=== PATIENT | male | born 1970 | race Two or more races ===

== ENCOUNTER 2020-05-11 09:52 | Outpatient (REF) | payer MEDICAID, SELFPAY ==
[2020-05-11 10:58] LABS: Estimated Average Glucose 157 mg/dL; Hemoglobin A1c % 7.1 %
[2020-05-11 11:12] LABS: Alanine Aminotransferase 22 U/L (0-40); Albumin Level 4.2 g/dL (3.5-5.0); Alkaline Phosphatase 59 U/L (39-117); Anion Gap 11 (12-20); Aspartate Amino Transferase 15 U/L (5-37); Bilirubin Total 0.6 mg/dL (0.0-1.0); Blood Urea Nitrogen 22 mg/dL (9-16); Calcium 9.4 mg/dL (8.4-10.2); Carbon Dioxide 31 mmol/L (22-29); Chloride 104 mmol/L (96-108); Estimated Glomerular Filt Rate > 60; Glucose Random 172 mg/dL (60-115); Sodium 142 mmol/L (135-145); Total Protein 7.1 g/dL (6.5-8.0)
== END 2020-05-11 09:53 | disposition home or self-care (01) ==
LOC: HO.LAB 09:52
PROVIDERS: PCP Internal Medicine; Visit Provider Internal Medicine
DX: E11.9 Type 2 diabetes mellitus without complications (principal); E78.2 Mixed hyperlipidemia; M25.512 Pain in left shoulder
CPT/HCPCS: 80053; 83036

== ENCOUNTER → 2020-06-15 10:46 | Outpatient (BNVA) | payer MEDICAID, SELFPAY | PROVIDERS: PCP Internal Medicine; Referring Provider Internal Medicine; Visit Provider Student in an Organized Health Care Education/Training Program | DX: M25.512 Pain in left shoulder (principal) | CPT/HCPCS: 20610; 99211 ==

== ENCOUNTER 2020-08-29 10:23 | Outpatient (REF) | payer MEDICAID, SELFPAY ==
[2020-08-29 12:06] LABS: MANUAL DIFF FLAG NO
[2020-08-29 12:11] LABS: Basophils Percent Auto 0.2 % (0-2); Eosinophils Absolute Auto 0.1 X10*3/uL (0.0-0.4); Eosinophils Percent Auto 1.4 % (0-4); Hematocrit 36.8 % (42-52); Hemoglobin 12.8 g/dl (14.0-18.0); Imm Gran Abs Auto 0.01 X10*3/uL (0.00-0.03); Imm Gran Pct Auto 0.2 % (0.0-0.4); Lymphocytes Absolute Auto 1.6 X10*3/uL (1.2-4.9); Lymphocytes Percent Auto 27.2 % (20-40); Mean Corpuscular HGB Conc 34.8 g/dl (31.0-36.0); Mean Corpuscular Hemoglobin 30.4 pg (27.0-33.0); Mean Corpuscular Volume 87.4 fL (80-98); Mean Platelet Volume 10.2 fL (9.4-12.4); Monocytes Absolute Auto 0.4 X10*3/uL (0.1-1.2); Monocytes Percent Auto 6.1 % (2-11); Neutrophils Absolute Auto 3.7 X10*3/uL (2.0-8.3); Neutrophils Percent Auto 64.9 % (45-73); Platelet Count 205 X10*3/uL (160-400); Red Blood Count 4.21 X10*6/uL (4.60-5.80); Red Cell Distribution Width 12.5 % (11.0-16.0); White Blood Count 5.7 X10*3/uL (4.8-10.8)
[2020-08-29 12:40] LABS: Estimated Average Glucose 189 mg/dL; Hemoglobin A1c % 8.2 %
[2020-08-29 12:46] LABS: Alanine Aminotransferase 20 U/L (0-40); Albumin Level 4.3 g/dL (3.5-5.0); Alkaline Phosphatase 66 U/L (39-117); Anion Gap 14 (12-20); Aspartate Amino Transferase 17 U/L (5-37); Bilirubin Total 0.6 mg/dL (0.0-1.0); Blood Urea Nitrogen 17 mg/dL (9-16); Calcium 9.3 mg/dL (8.4-10.2); Carbon Dioxide 27 mmol/L (22-29); Chloride 102 mmol/L (96-108); Cholesterol 108 mg/dL; Estimated Glomerular Filt Rate > 60; Glucose Random 217 mg/dL (60-115); HDL Cholesterol 42 mg/dL; LDL Cholesterol Calculated 57 mg/dl; Sodium 139 mmol/L (135-145); Total Protein 7.1 g/dL (6.5-8.0); Triglycerides 48 mg/dL
[2020-08-29 12:56] LABS: Creatinine Urine 175.74 mg/dL; Microalbum/Creatinine Ratio Ur 3.9 ug/mg cr
== END 2020-08-29 10:24 | disposition home or self-care (01) ==
LOC: HO.LAB 10:23
PROVIDERS: PCP Internal Medicine; Visit Provider Internal Medicine
DX: Z00.00 Encounter for general adult medical examination without abnormal findings (principal); E11.9 Type 2 diabetes mellitus without complications; E78.2 Mixed hyperlipidemia
CPT/HCPCS: 36415; 80053; 80061; 82043; 83036; 85025

== ENCOUNTER 2020-10-12 14:35 | Outpatient (REF) | payer MEDICAID, SELFPAY ==
[2020-10-12 14:57] LABS: COVID-19 Test Negative (Negative); IDNOW Serial# 55D5AD1C
== END 2020-10-12 14:36 | disposition home or self-care (01) ==
LOC: HO.LAB 14:35
PROVIDERS: Visit Provider Internal Medicine
DX: Z20.822 Contact with and (suspected) exposure to COVID-19 (principal)
CPT/HCPCS: 36415; 87635; C9803

== ENCOUNTER 2021-01-09 09:39 | Outpatient (REF) | payer MEDICAID, SELFPAY ==
[2021-01-09 11:03] LABS: Alanine Aminotransferase 23 U/L (0-40); Albumin Level 4.1 g/dL (3.5-5.0); Alkaline Phosphatase 57 U/L (39-117); Anion Gap 11 (12-20); Aspartate Amino Transferase 18 U/L (5-37); Bilirubin Total 0.6 mg/dL (0.0-1.0); Blood Urea Nitrogen 18 mg/dL (9-16); Calcium 9.6 mg/dL (8.4-10.2); Carbon Dioxide 29 mmol/L (22-29); Chloride 104 mmol/L (96-108); Estimated Glomerular Filt Rate > 60; Glucose Random 181 mg/dL (60-115); Sodium 140 mmol/L (135-145); Total Protein 6.8 g/dL (6.5-8.0)
[2021-01-09 11:19] LABS: Estimated Average Glucose 223 mg/dL; Hemoglobin A1c % 9.4 %
== END 2021-01-09 09:40 | disposition home or self-care (01) ==
LOC: HO.LAB 09:39
PROVIDERS: PCP Internal Medicine; Visit Provider Internal Medicine
DX: E11.65 Type 2 diabetes mellitus with hyperglycemia (principal); E78.00 Pure hypercholesterolemia, unspecified; I10 Essential (primary) hypertension
CPT/HCPCS: 36415; 80053; 83036

== ENCOUNTER → 2021-02-06 15:20 | Outpatient (BNVA) | payer MEDICAID, SELFPAY | PROVIDERS: PCP Internal Medicine; Visit Provider Anesthesiology | DX: M46.1 Sacroiliitis, not elsewhere classified (principal); M54.5 Low back pain; M53.3 Sacrococcygeal disorders, not elsewhere classified | CPT/HCPCS: 99202 ==

== ENCOUNTER → 2021-03-06 09:03 | Outpatient (BNVA) | payer MEDICAID, SELFPAY | PROVIDERS: PCP Internal Medicine; Visit Provider Anesthesiology | DX: M54.5 Low back pain (principal); M46.1 Sacroiliitis, not elsewhere classified; M53.3 Sacrococcygeal disorders, not elsewhere classified | CPT/HCPCS: 99212 ==

== ENCOUNTER 2021-04-10 09:56 | Outpatient (REF) | payer MEDICAID, SELFPAY ==
[2021-04-10 10:50] LABS: Estimated Average Glucose 143 mg/dL; Hemoglobin A1c % 6.6 %
[2021-04-10 11:14] LABS: Alanine Aminotransferase 19 U/L (0-40); Albumin Level 4.3 g/dL (3.5-5.0); Alkaline Phosphatase 55 U/L (39-117); Anion Gap 10 (12-20); Aspartate Amino Transferase 18 U/L (5-37); Bilirubin Total 0.7 mg/dL (0.0-1.0); Blood Urea Nitrogen 21 mg/dL (9-16); Calcium 9.7 mg/dL (8.4-10.2); Carbon Dioxide 29 mmol/L (22-29); Chloride 103 mmol/L (96-108); Estimated Glomerular Filt Rate > 60; Glucose Random 114 mg/dL (60-115); Potassium 4.3 mmol/L (3.3-5.1); Sodium 138 mmol/L (135-145)
== END 2021-04-10 09:57 | disposition home or self-care (01) ==
LOC: HO.LAB 09:56
PROVIDERS: PCP Internal Medicine; Visit Provider Internal Medicine
DX: E11.65 Type 2 diabetes mellitus with hyperglycemia (principal); E78.00 Pure hypercholesterolemia, unspecified; I10 Essential (primary) hypertension; M54.16 Radiculopathy, lumbar region
CPT/HCPCS: 36415; 80053; 83036

== ENCOUNTER 2021-04-18 11:08 | Day surgery (SDC) | payer MEDICAID, SELFPAY ==
[2021-04-11 09:17] VITALS: BMI 30.5
--- NOTE | ~2021-04-18 | FL_ITS ---
EXAMINATION: XR FLUOROSCOPY WITH IMAGES CLINICAL INFORMATION: SI joint injection COMPARISON: None. TECHNIQUE: Fluoroscopy performed by Dr. Austen Weinberg. Fluoroscopy time: 0.1 minutes DAP: 1.8 mGycm2 Images: 1 FINDINGS: Images demonstrate needle placement and contrast injection over the right inferior sacroiliac joint. FL/FL guidance in OR IMPRESSION: Fluoroscopy guidance for pain management procedure.
[2021-04-18 11:33] VITALS: BP 123/72; PULSE 64; RESP 16; TEMP 36.7; O2SAT 97
[2021-04-18 11:50] LABS: Glucose, Whole Blood 90 mg/dL (60-115)
--- NOTE | 2021-04-18 12:06 | MHC.SHP ---
Pre-Procedural Eval Section A Date of Service: 04/18/21 Section B Chief Complaint: Sacroiliitis, Sacroiliac joint dysfunction right Details of Present Illness: as above Relevant Family History (Specify if Yes): No Relevant Social History: None Present Medications: see Short Stay Collaborative assessment Medical History: No relevant PMH History of Previous Operations: No relevant previous surgery Allergies: Allergies Allergy/AdvReac Type Severity Reaction Status Date / Time No Known Allergies Allergy Verified 04/18/21 11:32 Review of Systems Sugical H&P ROS: Negative: Constitution, Cardiovascular, Respiratory, Neurological, Psychiatric, Hem-Onc, Allergic/Immunologic, Gastrointestinal, Genitourinary, Musculoskeletal, Integumentary, Endocrine and Eyes/Ears/Nose/Throat Exam Surgical H&P Exam: Normal: HEENT, Normal: Heart, Normal: Lungs, Normal: Extremities, Normal: Abdomen, Normal: Skin and Normal: Neurological Plan Diagnosis/Plan: Unchanged I have reviewed the history and physical and performed a pertinent physical examination on my patient. No changes have occurred unless specified.
--- NOTE | 2021-04-18 12:10 | W.PM.OPN ---
Operative Note Operative Note Date of Service: 04/18/21 Narrative: The patient came to theOR to have a diagnostic right SI joint injection. After obtaining informed consent the patient was brought to the OR where he was positioned prone on the operating table. ASA m-rs were applied and the patient was minimally sedated. Time out was performed delineating correct site and side of the procedure. the lower back of the patient was prepped and draped with duraprep. C-arm was brought over the operating field and square picture of the pelvis was demonstrated on the screen . tilting machine contralateral to the left the anterior and posterior portion of the joint were superimposed. Slightly medial to the silhouette of the joint the local anesthetic lidocain 2% was injected to the skin. 22G 3.5 inch needle was inserted through the skin wheal and advanced toward the SI joint on AP view. When penetration of the joint capsule felt, the contrast was injected into the joint demonstrating intra-articular spread of the contrast. the injection of the marcain 0.5% 4 mls was performed into the the needle. Upon completion of the injection the needle was removed and sterile dressing was applied. The patient tolerated the procedure well he was taken outside of the operating room to the recovery room. No immediate complications were observed.
--- NOTE | 2021-04-18 12:41 | HO.ANESPROP2 ---
HPI - Anesthesia Eval Consult details Narrative: 50 yo male patient for diagnostic Right sacroiliac joint steroid injection PMFSH Active Problems Active Problems: All Active Problems (Updated 04/11/21 @ 09:08 by Karena Lomas RN) Left shoulder pain (Acute) Sacroiliac joint dysfunction of right side (Acute) Sacroiliitis (Acute) Low back pain (Acute) Past Medical History Medical History Arthritis COVID-19 vaccine series completed Depression Diabetes mellitus Elevated cholesterol HTN (hypertension) Hx of steroid therapy Low back pain Sacroiliac joint dysfunction of right side Sacroiliitis Family History Family history of problems with anesthesia: No Surgical History Surgical History Surgical history unknown History of Problems with Anesthesia: No Social History Social History (Updated 06/15/20 @ 11:00 by Richard Abdi LPN) Alcohol intake: current Alcohol intake frequency: a few times a month Alcohol type: beer Patient Tobacco Use Status: Never used Tobacco Use of substances other than those prescribed or required for medical reasons: No Advance Directives: No Advance Directives Information Provided: Yes (informational brochure mailed) Advance Directives on File: No Meds Allergies Allergy/AdvReac Type Severity Reaction Status Date / Time No Known Allergies Allergy Verified 04/18/21 11:32 Active Medications: Current Medications Lactated Ringer's (Lr) 1,000 mls @ 100 mls/hr IVCONT .Q10H JOSEFINA Home Medications Medication Instructions Recorded Confirmed Last Taken Type duloxetine 30 mg capsule,delayed 30 mg PO DAILY 06/15/20 04/11/21 Unknown History release (Cymbalta) metformin 1,000 mg tablet 1,000 mg PO BID 06/15/20 04/11/21 Unknown History blood sugar diagnostic (FreeStyle #10 ea 02/06/21 Unknown History Test) diclofenac sodium 75 mg 75 mg PO BID 02/06/21 04/11/21 Unknown History tablet,delayed release empagliflozin 25 mg tablet 25 mg PO QAM 02/06/21 04/11/21 Unknown History (Jardiance) lancets 28 gauge (FreeStyle #100 ea 02/06/21 Unknown History Lancets) zolpidem 10 mg tablet 10 mg PO BEDTIME PRN 02/06/21 04/11/21 Unknown History duloxetine 60 mg capsule,delayed 60 mg PO DAILY 04/11/21 04/11/21 Unknown History release ezetimibe 10 mg tablet 10 mg PO DAILY 04/11/21 04/11/21 Unknown History glimepiride 2 mg tablet 2 mg PO DAILY 04/11/21 04/11/21 Unknown History losartan 50 mg tablet 50 mg PO DAILY 04/11/21 04/11/21 Unknown History rosuvastatin 40 mg tablet 40 mg PO BEDTIME 04/11/21 04/11/21 Unknown History Exam Exam Date and Time: April 18, 2021 1241 Height,Weight and Vital Signs: Height 5 ft 9 in Weight 93.894 kg Last Vital Signs Temp 98.0 F 04/18/21 11:33 Pulse 64 04/18/21 11:33 Resp 16 04/18/21 11:33 BP 123/72 04/18/21 11:33 Pulse Ox 97 04/18/21 11:33 Pertinent Lab Results Pertinent Lab Results: Laboratory Tests 04/18/21 11:40 POC Glucose 90 Airway Mallampati Class: II TM Dist: >3cm Neck ROM: Full Loose/Missing/Broken Teeth: Yes (Broken top front left) Heart: RRR Lungs: CTAB Assessment and Plan Assessment Anesthesia Assessment: Anesthesia Plan Discussed and Chart Reviewed Final Anesthetic Review Family History of Problems with Anesthesia: No History of Problems with Anesthesia: No NPO: Yes ASA Class: II Final Preanesthetic Review: No Changes in Pt Med Stat, Meds/Allgs Chart Reviewed, Consent Obtained/Reviewed and Anes Risks/Benef Reviewed Patient Risk: Low Procedure Risk: Low Assessment/Block/Sedation in SS: Assess/Block/Sedation-SS Anesthetic Plan Anesthetic Plan: MAC: Disposition: Standard PACU
[2021-04-18] MEDS: Lactated Ringers 1,000 ML 100 ML IVCONT (12:48)
--- NOTE | 2021-04-18 13:12 | PM.OP ---
Brief Operative Note Date of Service: 04/18/21 Pre-op diagnosis: sacroiliitis Post-op diagnosis: same Procedure: diagnostic left SI joint injection. Implants: none Surgeon: Austen Weinberg MD Anesthesia: MAC Was an Software Qa System Specialist used for this Procedure?: No Estimated blood loss (mL): 0 Pathology: none sent Condition: stable Disposition: PACU
[2021-04-18 13:16] VITALS: BP 115/65; PULSE 60; RESP 16; TEMP 36.7; O2SAT 96
[2021-04-18 13:31] VITALS: BP 105/66; PULSE 59; RESP 16; TEMP 36.7; O2SAT 98
[2021-04-18 13:46] VITALS: BP 116/71; PULSE 57; RESP 17; TEMP 36.7; O2SAT 99
== END 2021-04-18 14:21 | disposition home or self-care (01) ==
PROVIDERS: PCP Internal Medicine; Visit Provider Anesthesiology
PROC: 3E0U33Z Introduction of Anti-inflammatory into Joints, Percutaneous Approach (ICD-10-PCS; CPT 27096; principal; 2021-04-18 12:50)
DX: M54.50 Low back pain, unspecified (principal); M46.1 Sacroiliitis, not elsewhere classified; M53.3 Sacrococcygeal disorders, not elsewhere classified; M79.661 Pain in right lower leg; E11.9 Type 2 diabetes mellitus without complications
CPT/HCPCS: 27096; 82947; J2250; Q9967

== ENCOUNTER → 2021-04-24 15:27 | Outpatient (BNVA) | payer MEDICAID, SELFPAY | PROVIDERS: PCP Internal Medicine; Visit Provider Anesthesiology ==

== ENCOUNTER 2021-07-08 09:43 | Outpatient (REF) | payer MEDICAID, SELFPAY ==
[2021-07-08 10:50] LABS: Alanine Aminotransferase 17 U/L (0-40); Albumin Level 4.2 g/dL (3.5-5.0); Alkaline Phosphatase 51 U/L (39-117); Anion Gap 10 (12-20); Aspartate Amino Transferase 20 U/L (5-37); Bilirubin Total 0.6 mg/dL (0.0-1.0); Blood Urea Nitrogen 16 mg/dL (9-16); Calcium 9.8 mg/dL (8.4-10.2); Carbon Dioxide 29 mmol/L (22-29); Chloride 106 mmol/L (96-108); Estimated Glomerular Filt Rate > 60; Glucose Random 114 mg/dL (60-115); Potassium 3.9 mmol/L (3.3-5.1); Sodium 141 mmol/L (135-145)
[2021-07-08 11:38] LABS: Estimated Average Glucose 137 mg/dL; Hemoglobin A1c % 6.4 %
== END 2021-07-08 09:44 | disposition home or self-care (01) ==
LOC: HO.LAB 09:43
PROVIDERS: PCP Internal Medicine; Visit Provider Internal Medicine
DX: E11.9 Type 2 diabetes mellitus without complications (principal); I10 Essential (primary) hypertension; L30.0 Nummular dermatitis; M46.1 Sacroiliitis, not elsewhere classified
CPT/HCPCS: 36415; 80053; 83036

== ENCOUNTER 2021-07-12 11:05 | Day surgery (SDC) | payer MEDICAID, SELFPAY ==
[2021-07-08 11:12] VITALS: BMI 30.5
--- NOTE | 2021-07-11 10:52 | P.CONAN_ITS ---
Documented by User: Divya Santos NP 07/11/21 10:54 HPI - Anesthesia Eval Consult details Narrative: 51yo M for Right Sacroiliac Joint Steroid Injection s/p same 04/2021 with MAC [facility] Active Problems Active Problems: All Active Problems (Updated 07/08/21 @ 11:12 by Karena Lomas RN) Left shoulder pain (Acute) Sacroiliac joint dysfunction of right side (Acute) Sacroiliitis (Acute) Low back pain (Acute) Past Medical History Medical History Arthritis COVID-19 vaccine series completed Depression Diabetes mellitus Elevated cholesterol History of steroid therapy HTN (hypertension) Low back pain Sacroiliac joint dysfunction of right side Sacroiliitis Family History Family history of problems with anesthesia: No Surgical History Surgical History Surgical history unknown History of Problems with Anesthesia: No Social History Social History Alcohol intake: current Alcohol intake frequency: does not drink Alcohol type: beer Patient Tobacco Use Status: Never used Tobacco Use of substances other than those prescribed or required for medical reasons: No Are you DNR?: No Advance Directives: No Advance Directives Information Provided: Yes Advance Directives on File: No Meds Allergies Allergy/AdvReac Type Severity Reaction Status Date / Time No Known Allergies Allergy Verified 04/24/21 15:28 Home Medications Medication Instructions Recorded Confirmed Last Taken Type duloxetine 30 mg 30 mg PO DAILY 06/15/20 07/08/21 Unknown History capsule,delayed release (Cymbalta) metformin 1,000 1,000 mg PO BID 06/15/20 07/08/21 Unknown History mg tablet blood sugar #10 ea 02/06/21 07/08/21 Unknown History diagnostic (FreeStyle Test) diclofenac sodium 75 mg PO BID 02/06/21 07/08/21 Unknown History 75 mg tablet,delayed release empagliflozin 25 25 mg PO QAM 02/06/21 07/08/21 Unknown History mg tablet (Jardiance) lancets 28 gauge #100 ea 02/06/21 07/08/21 Unknown History (FreeStyle Lancets) zolpidem 10 mg 10 mg PO BEDTIME 02/06/21 07/08/21 Unknown History tablet PRN duloxetine 60 mg 60 mg PO DAILY 04/11/21 07/08/21 Unknown History capsule,delayed release ezetimibe 10 mg 10 mg PO DAILY 04/11/21 07/08/21 Unknown History tablet glimepiride 2 mg 2 mg PO DAILY 04/11/21 07/08/21 Unknown History tablet losartan 50 mg 50 mg PO DAILY 04/11/21 07/08/21 Unknown History tablet rosuvastatin 40 40 mg PO BEDTIME 04/11/21 07/08/21 Unknown History mg tablet Exam Exam Date and Time: July 11, 2021 1052 Height,Weight and Vital Signs: Height 5 ft 9 in Weight 93.894 kg Pertinent Lab Results Pertinent Lab Results: Laboratory Tests 08/29/20 07/08/21 10:35 10:02 WBC 5.7 Hgb 12.8 L Hct 36.8 L Plt Count 205 Sodium 141 Potassium 3.9 Chloride 106 Carbon Dioxide 29 BUN 16 Creatinine 1.03 Assessment and Plan Assessment Anesthesia Assessment: Chart Reviewed Final Anesthetic Review Family History of Problems with Anesthesia: No History of Problems with Anesthesia: No Documented by User: Lisa Childress MD 07/12/21 12:58 PMFSH Past Medical History Medical History Arthritis COVID-19 vaccine series completed Depression Diabetes mellitus Elevated cholesterol History of steroid therapy HTN (hypertension) Low back pain Sacroiliac joint dysfunction of right side Sacroiliitis Surgical History Surgical History Surgical history unknown Social History Social History Alcohol intake: current Alcohol intake frequency: does not drink Alcohol type: beer Patient Tobacco Use Status: Never used Tobacco Use of substances other than those prescribed or required for medical reasons: No Are you DNR?: No Advance Directives: No Advance Directives Information Provided: Yes Advance Directives on File: No Meds Allergies Allergy/AdvReac Type Severity Reaction Status Date / Time No Known Allergies Allergy Verified 04/24/21 15:28 Home Medications Medication Instructions Recorded Confirmed Last Taken Type duloxetine 30 mg 30 mg PO DAILY 06/15/20 07/08/21 Unknown History capsule,delayed release (Cymbalta) metformin 1,000 1,000 mg PO BID 06/15/20 07/08/21 Unknown History mg tablet blood sugar #10 ea 02/06/21 07/08/21 Unknown History diagnostic (FreeStyle Test) diclofenac sodium 75 mg PO BID 02/06/21 07/08/21 Unknown History 75 mg tablet,delayed release empagliflozin 25 25 mg PO QAM 02/06/21 07/08/21 Unknown History mg tablet (Jardiance) lancets 28 gauge #100 ea 02/06/21 07/08/21 Unknown History (FreeStyle Lancets) zolpidem 10 mg 10 mg PO BEDTIME 02/06/21 07/08/21 Unknown History tablet PRN duloxetine 60 mg 60 mg PO DAILY 04/11/21 07/08/21 Unknown History capsule,delayed release ezetimibe 10 mg 10 mg PO DAILY 04/11/21 07/08/21 Unknown History tablet glimepiride 2 mg 2 mg PO DAILY 04/11/21 07/08/21 Unknown History tablet losartan 50 mg 50 mg PO DAILY 04/11/21 07/08/21 Unknown History tablet rosuvastatin 40 40 mg PO BEDTIME 04/11/21 07/08/21 Unknown History mg tablet Exam Airway Mallampati Class: II TM Dist: >3cm Neck ROM: Full Loose/Missing/Broken Teeth: No Heart: RRR Lungs: CTA Assessment and Plan Final Anesthetic Review NPO: Yes ASA Class: II Final Preanesthetic Review: Meds/Allgs Chart Reviewed, Consent Obtained/Reviewed and Anes Risks/Benef Reviewed Patient Risk: Low Procedure Risk: Low Anesthetic Plan Anesthetic Plan: MAC: Disposition: Standard PACU
--- NOTE | 2021-07-11 10:52 | HO.ANESPROP2 ---
Documented by User: Divya Santos NP 07/11/21 10:54 HPI - Anesthesia Eval Consult details Narrative: 51yo M for Right Sacroiliac Joint Steroid Injection s/p same 04/2021 with MAC [facility] Active Problems Active Problems: All Active Problems (Updated 07/08/21 @ 11:12 by Karena Lomas RN) Left shoulder pain (Acute) Sacroiliac joint dysfunction of right side (Acute) Sacroiliitis (Acute) Low back pain (Acute) Past Medical History Medical History Arthritis COVID-19 vaccine series completed Depression Diabetes mellitus Elevated cholesterol History of steroid therapy HTN (hypertension) Low back pain Sacroiliac joint dysfunction of right side Sacroiliitis Family History Family history of problems with anesthesia: No Surgical History Surgical History Surgical history unknown History of Problems with Anesthesia: No Social History Social History Alcohol intake: current Alcohol intake frequency: does not drink Alcohol type: beer Patient Tobacco Use Status: Never used Tobacco Use of substances other than those prescribed or required for medical reasons: No Are you DNR?: No Advance Directives: No Advance Directives Information Provided: Yes Advance Directives on File: No Meds Allergies Allergy/AdvReac Type Severity Reaction Status Date / Time No Known Allergies Allergy Verified 04/24/21 15:28 Home Medications Medication Instructions Recorded Confirmed Last Taken Type duloxetine 30 mg capsule,delayed 30 mg PO DAILY 06/15/20 07/08/21 Unknown History release (Cymbalta) metformin 1,000 mg tablet 1,000 mg PO BID 06/15/20 07/08/21 Unknown History blood sugar diagnostic (FreeStyle #10 ea 02/06/21 07/08/21 Unknown History Test) diclofenac sodium 75 mg 75 mg PO BID 02/06/21 07/08/21 Unknown History tablet,delayed release empagliflozin 25 mg tablet 25 mg PO QAM 02/06/21 07/08/21 Unknown History (Jardiance) lancets 28 gauge (FreeStyle #100 ea 02/06/21 07/08/21 Unknown History Lancets) zolpidem 10 mg tablet 10 mg PO BEDTIME PRN 02/06/21 07/08/21 Unknown History duloxetine 60 mg capsule,delayed 60 mg PO DAILY 04/11/21 07/08/21 Unknown History release ezetimibe 10 mg tablet 10 mg PO DAILY 04/11/21 07/08/21 Unknown History glimepiride 2 mg tablet 2 mg PO DAILY 04/11/21 07/08/21 Unknown History losartan 50 mg tablet 50 mg PO DAILY 04/11/21 07/08/21 Unknown History rosuvastatin 40 mg tablet 40 mg PO BEDTIME 04/11/21 07/08/21 Unknown History Exam Exam Date and Time: July 11, 2021 1052 Height,Weight and Vital Signs: Height 5 ft 9 in Weight 93.894 kg Pertinent Lab Results Pertinent Lab Results: Laboratory Tests 08/29/20 07/08/21 10:35 10:02 WBC 5.7 Hgb 12.8 L Hct 36.8 L Plt Count 205 Sodium 141 Potassium 3.9 Chloride 106 Carbon Dioxide 29 BUN 16 Creatinine 1.03 Assessment and Plan Assessment Anesthesia Assessment: Chart Reviewed Final Anesthetic Review Family History of Problems with Anesthesia: No History of Problems with Anesthesia: No Documented by User: Lisa Childress MD 07/12/21 12:58 [facility] Past Medical History Medical History Arthritis COVID-19 vaccine series completed Depression Diabetes mellitus Elevated cholesterol History of steroid therapy HTN (hypertension) Low back pain Sacroiliac joint dysfunction of right side Sacroiliitis Surgical History Surgical History Surgical history unknown Social History Social History Alcohol intake: current Alcohol intake frequency: does not drink Alcohol type: beer Patient Tobacco Use Status: Never used Tobacco Use of substances other than those prescribed or required for medical reasons: No Are you DNR?: No Advance Directives: No Advance Directives Information Provided: Yes Advance Directives on File: No Meds Allergies Allergy/AdvReac Type Severity Reaction Status Date / Time No Known Allergies Allergy Verified 04/24/21 15:28 Home Medications Medication Instructions Recorded Confirmed Last Taken Type duloxetine 30 mg capsule,delayed 30 mg PO DAILY 06/15/20 07/08/21 Unknown History release (Cymbalta) metformin 1,000 mg tablet 1,000 mg PO BID 06/15/20 07/08/21 Unknown History blood sugar diagnostic (FreeStyle #10 ea 02/06/21 07/08/21 Unknown History Test) diclofenac sodium 75 mg 75 mg PO BID 02/06/21 07/08/21 Unknown History tablet,delayed release empagliflozin 25 mg tablet 25 mg PO QAM 02/06/21 07/08/21 Unknown History (Jardiance) lancets 28 gauge (FreeStyle #100 ea 02/06/21 07/08/21 Unknown History Lancets) zolpidem 10 mg tablet 10 mg PO BEDTIME PRN 02/06/21 07/08/21 Unknown History duloxetine 60 mg capsule,delayed 60 mg PO DAILY 04/11/21 07/08/21 Unknown History release ezetimibe 10 mg tablet 10 mg PO DAILY 04/11/21 07/08/21 Unknown History glimepiride 2 mg tablet 2 mg PO DAILY 04/11/21 07/08/21 Unknown History losartan 50 mg tablet 50 mg PO DAILY 04/11/21 07/08/21 Unknown History rosuvastatin 40 mg tablet 40 mg PO BEDTIME 04/11/21 07/08/21 Unknown History Exam Airway Mallampati Class: II TM Dist: >3cm Neck ROM: Full Loose/Missing/Broken Teeth: No Heart: RRR Lungs: CTA Assessment and Plan Final Anesthetic Review NPO: Yes ASA Class: II Final Preanesthetic Review: Meds/Allgs Chart Reviewed, Consent Obtained/Reviewed and Anes Risks/Benef Reviewed Patient Risk: Low Procedure Risk: Low Anesthetic Plan Anesthetic Plan: MAC: Disposition: Standard PACU
[2021-07-12] VITALS (7 sets, daily range): BP systolic 103–138; BP diastolic 59–77; PULSE 67–80; RESP 16–20; TEMP 36.1–37.2; O2SAT 96–100
--- NOTE | ~2021-07-12 | FL_ITS ---
EXAMINATION: XR FLUOROSCOPY WITH IMAGES CLINICAL INFORMATION: SI joint injection. COMPARISON: None. TECHNIQUE: Fluoroscopy performed by Dr. Vallecillo. Fluoroscopy time: 0.1 minutes DAP: 0.533 mGycm2 Images: 1 FINDINGS: There is a single image obtained of fluoroscopy with contrast opacifying the right SI joint. No gross bony abnormality seen. FL/FL guidance in OR IMPRESSION: Fluoroscopy provided to referring physician for right SI joint injection.
[2021-07-12 11:53] LABS: Glucose, Whole Blood 97 mg/dL (60-115)
[2021-07-12] MEDS: Lactated Ringers 1,000 ML 100 ML IVCONT (11:58)
--- NOTE | 2021-07-12 14:03 | MHC.SHP ---
Pre-Procedural Eval Section A Date of Service: 07/12/21 The patient is an INPATIENT: No Changes since office visit: Yes Patient answered all questions The History & Physical has been completed within 30 days and I have reviewed it.: No Section B Chief Complaint: sacroiliitis Details of Present Illness: As above Relevant Family History (Specify if Yes): No Relevant Social History: None Present Medications: see Short Stay Collaborative assessment Medical History: No relevant PMH History of Previous Operations: Relevant previous surgery/procedure and date(s) Allergies: Allergies Allergy/AdvReac Type Severity Reaction Status Date / Time No Known Allergies Allergy Verified 04/24/21 15:28 Review of Systems Sugical H&P ROS: Negative: Constitution, Cardiovascular, Respiratory, Neurological, Psychiatric, Hem-Onc, Allergic/Immunologic, Gastrointestinal, Genitourinary, Musculoskeletal, Integumentary, Endocrine and Eyes/Ears/Nose/Throat Exam Surgical H&P Exam: Normal: HEENT, Normal: Heart, Normal: Lungs, Normal: Extremities, Normal: Abdomen, Normal: Skin and Normal: Neurological Plan Diagnosis/Plan: Unchanged I have reviewed the history and physical and performed a pertinent physical examination on my patient. No changes have occurred unless specified.
--- NOTE | 2021-07-12 14:10 | W.PM.OPN ---
Operative Note Operative Note Date of Service: 07/12/21 Narrative: Informed consent was explained to the patient. All questions were explained and? answered.? The patient was taken inside the operating room where she was positioned prone on the operating table.? [employer] monitors were applied.? Patient was minimally sedated. ? Time-out was performed delineating correct site, side, the nature of the procedure, patient's allergy, preoperative antibiotic if needed.? All operating room staff was participating in OR time-out procedure. ? ? the lower back was prepped with DuraPrep and draped with sterile towels.? Sterilely draped C-arm was brought over the operating field and sq picture of patient's pelvis were delineated on the screen.? the point of interest was chosen as the lowest medial point of sacroiliac joint on the right. 22 gauge 3-1/2 inch needle was driven to the sacroiliac joint in tunnel vision fashion after skin wheal was raised to the skin to accommodate the needle advancement. When tip of the needle entered the capsule of the joint injection of the contrast performed demonstrating no intra vascular and no retro pelvic spread of the contrast. . intra-articular spread of the contrast was noted. After that injection of the bupivacaine 0.5% mixed with Kenalog 40 mg was injected into the needle. After that the needle was removed and sterile dressing was applied.? ? Upon completion of the injections? needle was? removed and sterile Band-Aids were applied.? The? patient was awaken and taken outside of the operating room to recovery room where he recovered uneventfully.? he went home without immediate complications.
--- NOTE | 2021-07-12 14:40 | PM.OP ---
Brief Operative Note Date of Service: 07/12/21 Pre-op diagnosis: sacroiliitis Post-op diagnosis: same Procedure: right sacroiliac joint injection Implants: none Surgeon: Austen Weinberg MD Anesthesia: MAC Was an Firmware Engineer used for this Procedure?: No Estimated blood loss (mL): 0 Pathology: none sent Condition: stable Disposition: PACU
== END 2021-07-12 16:53 | disposition home or self-care (01) ==
PROVIDERS: PCP Internal Medicine; Visit Provider Anesthesiology
PROC: 3E0U33Z Introduction of Anti-inflammatory into Joints, Percutaneous Approach (ICD-10-PCS; CPT 27096; principal; 2021-07-12 13:20)
DX: M46.1 Sacroiliitis, not elsewhere classified (principal); M54.50 Low back pain, unspecified; M53.3 Sacrococcygeal disorders, not elsewhere classified; E78.00 Pure hypercholesterolemia, unspecified; I10 Essential (primary) hypertension; E11.9 Type 2 diabetes mellitus without complications; Z79.84 Long term (current) use of oral hypoglycemic drugs; Z79.899 Other long term (current) drug therapy
CPT/HCPCS: 27096; 82947; J2250; J3010; J3300; Q9967

== ENCOUNTER 2021-07-22 07:55 | Outpatient (REF) | payer MEDICAID, SELFPAY ==
[2021-07-22 08:11] LABS: MANUAL DIFF FLAG NO
[2021-07-22 08:35] LABS: Basophils Percent Auto 0.3 % (0-2); Eosinophils Absolute Auto 0.1 X10*3/uL (0.0-0.4); Eosinophils Percent Auto 1.4 % (0-4); Hematocrit 39.8 % (42.0-52.0); Hemoglobin 13.5 g/dl (14.0-18.0); Imm Gran Abs Auto 0.02 X10*3/uL (0.00-0.03); Imm Gran Pct Auto 0.3 % (0.0-0.4); Lymphocytes Absolute Auto 2.5 X10*3/uL (1.2-4.9); Mean Corpuscular HGB Conc 33.9 g/dl (31.0-36.0); Mean Corpuscular Hemoglobin 29.6 pg (27.0-33.0); Mean Corpuscular Volume 87.3 fL (80.0-98.0); Mean Platelet Volume 9.3 fL (9.4-12.4); Monocytes Absolute Auto 0.7 X10*3/uL (0.1-1.2); Monocytes Percent Auto 8.5 % (2-11); Neutrophils Absolute Auto 4.4 x10*3/uL (2.0-8.3); Neutrophils Percent Auto 57.5 % (45-73); Platelet Count 239 X10*3/uL (160-400); Red Blood Count 4.56 X10*6/uL (4.60-5.80); Red Cell Distribution Width 12.7 % (11.0-16.0); White Blood Count 7.7 X10*3/uL (4.8-10.8)
[2021-07-22 08:53] LABS: Alanine Aminotransferase 34 U/L (0-40); Albumin Level 4.2 g/dL (3.5-5.0); Alkaline Phosphatase 55 U/L (39-117); Anion Gap 11 (12-20); Aspartate Amino Transferase 25 U/L (5-37); Bilirubin Total 0.5 mg/dL (0.0-1.0); Blood Urea Nitrogen 18 mg/dL (9-16); Carbon Dioxide 29 mmol/L (22-29); Chloride 104 mmol/L (96-108); Cholesterol 104 mg/dL; Estimated Glomerular Filt Rate > 60; Glucose Random 86 mg/dL (60-115); HDL Cholesterol 38 mg/dL; LDL Cholesterol Calculated 58 mg/dl; Potassium 4.2 mmol/L (3.3-5.1); Sodium 140 mmol/L (135-145); Total Protein 7.1 g/dL (6.5-8.0); Triglycerides 41 mg/dL
[2021-07-22 09:28] LABS: Estimated Average Glucose 134 mg/dL; Hemoglobin A1c % 6.3 %
[2021-07-22 09:55] LABS: Creatinine Urine 84.31 mg/dL; Microalbumin Urine < 5.0 mg/L
== END 2021-07-22 07:56 | disposition home or self-care (01) ==
LOC: HO.LAB 07:55
PROVIDERS: PCP Internal Medicine; Visit Provider Internal Medicine
DX: E11.9 Type 2 diabetes mellitus without complications (principal); E78.2 Mixed hyperlipidemia; I10 Essential (primary) hypertension; M75.52 Bursitis of left shoulder; M54.50 Low back pain, unspecified; M46.1 Sacroiliitis, not elsewhere classified; M53.3 Sacrococcygeal disorders, not elsewhere classified
CPT/HCPCS: 36415; 80053; 80061; 82043; 83036; 85025; 99212

== ENCOUNTER 2021-07-24 09:45 | Outpatient (REF) | payer MEDICAID, SELFPAY ==
--- NOTE | ~2021-07-24 | XR_ITS ---
EXAMINATION: XR ANKLE, RIGHT CLINICAL INFORMATION: Injury of right ankle COMPARISON: None TECHNIQUE: AP, lateral, and mortise views of the right ankle. FINDINGS: Bones have normal alignment. The talar dome is well-positioned within the ankle mortise. Ankle joint space and syndesmotic space are normal. A small, less than 0.2 cm calcification is seen in the region of the anterior talofibular ligament. This is of uncertain chronicity. Soft tissues are mildly swollen at the lateral ankle. There is a plantar calcaneal enthesophyte. XR/XR ankle RT min 3V IMPRESSION: * Soft tissues are mildly swollen at the lateral ankle. * A very small calcification is present in the region of the anterior talofibular ligament. This could be secondary to an old or recent minor avulsion injury.
== END 2021-07-24 09:46 | disposition home or self-care (01) ==
LOC: HO.XRAY 09:45
PROVIDERS: PCP Internal Medicine; Visit Provider Internal Medicine
DX: S99.911D Unspecified injury of right ankle, subsequent encounter (principal)
CPT/HCPCS: 73610

== ENCOUNTER → 2021-07-30 08:54 | Outpatient (BNVA) | payer MEDICAID, SELFPAY | PROVIDERS: PCP Internal Medicine; Visit Provider Physician Assistant | DX: M75.42 Impingement syndrome of left shoulder (principal) | CPT/HCPCS: 20610; 99212; J1020 ==

== ENCOUNTER → 2021-08-14 12:54 | Outpatient (BNVA) | payer MEDICAID, SELFPAY | PROVIDERS: PCP Internal Medicine; Visit Provider Anesthesiology | DX: M54.50 Low back pain, unspecified (principal); M46.1 Sacroiliitis, not elsewhere classified; M53.3 Sacrococcygeal disorders, not elsewhere classified | CPT/HCPCS: 99212 ==

== ENCOUNTER 2021-10-21 08:41 | Outpatient (REF) | payer MEDICAID, SELFPAY ==
[2021-10-21 09:28] LABS: Estimated Average Glucose 131 mg/dL; Hemoglobin A1c % 6.2 %
[2021-10-21 09:40] LABS: Alanine Aminotransferase 25 U/L (0-40); Albumin Level 4.1 g/dL (3.5-5.0); Alkaline Phosphatase 50 U/L (39-117); Anion Gap 10 (12-20); Aspartate Amino Transferase 20 U/L (5-37); Bilirubin Total 0.6 mg/dL (0.0-1.0); Blood Urea Nitrogen 19 mg/dL (9-16); Calcium 9.7 mg/dL (8.4-10.2); Carbon Dioxide 29 mmol/L (22-29); Chloride 105 mmol/L (96-108); Estimated Glomerular Filt Rate > 60; Glucose Random 129 mg/dL (60-115); Potassium 4.1 mmol/L (3.3-5.1); Sodium 140 mmol/L (135-145); Total Protein 6.9 g/dL (6.5-8.0)
== END 2021-10-21 08:42 | disposition home or self-care (01) ==
LOC: HO.LAB 08:41
PROVIDERS: PCP Internal Medicine; Visit Provider Internal Medicine
DX: E11.9 Type 2 diabetes mellitus without complications (principal); E78.2 Mixed hyperlipidemia; M25.571 Pain in right ankle and joints of right foot
CPT/HCPCS: 36415; 80053; 83036

== ENCOUNTER 2021-12-01 10:38 | Emergency (ER) | payer MEDICAID, SELFPAY ==
[2021-12-01 10:39] VITALS: BP 132/73; PULSE 77; RESP 18; TEMP 36.7; O2SAT 97; BMI 27.8
--- NOTE | 2021-12-01 10:51 | ED.GENADULT ---
HPI - General Adult General Chief complaint: Ear Problems Stated complaint: Sore throat/R ear pain Time Seen by Provider: 12/01/21 10:42 Source: patient Mode of arrival: ambulatory Limitations: no limitations History of Present Illness HPI narrative: Patient is a 51 year old male presenting to the emergency department today with sore throat, ear pain, and fevers. Patient states that the last 3 days, he has had bilateral ear pain, a sore throat, and fevers. Patient denies any dizziness, lightheadedness, abdominal pain, nausea, vomiting, chills, blurry vision, double vision, loss of vision, chest pain, difficulty breathing, shortness of breath, back pain, night sweats, pain with urination, increased urinary frequency, increased urinary urgency, blood in his urine or stool, syncope or a near syncopal episode, recent trauma or falls, bowel incontinence, bladder incontinence, bowel retention, bladder retention, or any other complaints at this time. ? Onset (ago): day(s) (3) Radiation: non-radiation Severity: mild Severity scale (1-10): 2 Quality: dull Pain Consistency: constant Relieving factors: none Exacerbating factors: none Associated symptoms: fever/chills Treatments prior to arrival: none Related Data Home Medications Medication Instructions Recorded Confirmed duloxetine 30 mg capsule,delayed 30 mg PO DAILY 06/15/20 07/08/21 release (Cymbalta) metformin 1,000 mg tablet 1,000 mg PO BID 06/15/20 07/08/21 blood sugar diagnostic (FreeStyle #10 ea 02/06/21 07/08/21 Test) diclofenac sodium 75 mg 75 mg PO BID 02/06/21 07/08/21 tablet,delayed release empagliflozin 25 mg tablet 25 mg PO QAM 02/06/21 07/08/21 (Jardiance) lancets 28 gauge (FreeStyle #100 ea 02/06/21 07/08/21 Lancets) zolpidem 10 mg tablet 10 mg PO BEDTIME PRN Insomnia 02/06/21 07/08/21 duloxetine 60 mg capsule,delayed 60 mg PO DAILY 04/11/21 07/08/21 release ezetimibe 10 mg tablet 10 mg PO DAILY 04/11/21 07/08/21 glimepiride 2 mg tablet 2 mg PO DAILY 04/11/21 07/08/21 losartan 50 mg tablet 50 mg PO DAILY 04/11/21 07/08/21 rosuvastatin 40 mg tablet 40 mg PO BEDTIME 04/11/21 07/08/21 Allergies Allergy/AdvReac Type Severity Reaction Status Date / Time No Known Allergies Allergy Verified 08/14/21 13:07 Review of Systems Constitutional: Constitutional: Reports no additional constitutional complaints, Denies chills, Reports fever(s) and Denies night sweats Eyes: Eyes: Reports no additional eye complaints, Denies blurry vision, Denies change in vision, Denies diplopia, Denies eye discharge, Denies loss of vision and Denies eye pain ENT: Denies dizziness and Reports sore throat Comments: ear pain Cardiovascular: Cardiovascular: Reports no additional cardiovascular complaints, Denies chest pain, Denies lightheadedness, Denies Loss of Consciousness and Denies dyspnea Respiratory: Respiratory: Reports no additional respiratory complaints and Denies dyspnea Gastrointestinal: Gastrointestinal: Reports no additional gastrointestinal complaints, Denies abdominal pain, Denies melena, Denies hematochezia, Denies change in bowel habits and Denies change in stool character Genitourinary: Genitourinary: Reports no additional male genitourinary complaints, Denies hematuria, Denies oliguria, Denies difficulty urinating, Denies dysuria, Denies urinary frequency, Denies urinary hesitancy, Denies urinary incontinence and Denies urinary urgency Musculoskeletal: Musculoskeletal: Reports no additional musculoskeletal complaints, Denies numbness and Denies tingling Neurologic: Denies dizziness, Denies loss of vision, Denies numbness and Denies tingling Psychiatric: Psychiatric: Reports no additional psychiatric complaints Endocrine: Endocrine: Reports no additional endocrine complaints Hematologic/Lymphatic: Hematologic/Lymphatic: Reports no additional hematologic/lymphatic complaints Allergic/Immunologic: Allergic/Immunologic: Reports no additional allergic/immunologic complaints [facility] Past Medical History Attestation statement: The following information was validated with the patient. Source: old records reviewed Medical History Arthritis COVID-19 vaccine series completed Depression Diabetes mellitus Elevated cholesterol History of steroid therapy HTN (hypertension) Surgical History Surgical history unknown Social History Social History Alcohol intake: current Alcohol intake frequency: does not drink Alcohol type: beer Patient Tobacco Use Status: Never used Tobacco Advance Directives: No Advance Directives Information Provided: No Physical Exam ED Vital Signs: Vital Signs - 24 hr 12/01/21 10:39 Temperature 98.0 F Pulse Rate 77 Respiratory Rate 18 Blood Pressure 132/73 Pulse Oximetry 97 Oxygen Delivery Method Room Air BMI result Body Mass Index 27.8 Const General: cooperative, no acute distress, alert and awake Nutritional Appearance: well nourished Orientation/consciousness: patient oriented x3 Limitations: no limitations HENMT Head: Yes normal to inspection and Yes atraumatic Ears: hearing grossly normal bilaterally and external ears normal General nose exam: Normal external nose present, no nasal discharge noted and no epistaxis Face and sinus: Yes normal facial exam, No abrasion and No laceration Mouth: Normal oral and palatal mucosa present, no drooling and no muffled voice Eyes General: appearance normal, both eyes and all related structures Periorbital: periorbital findings normal Eyelids: Yes eyelids normal Conjunctivae: conjunctivae normal Pupils: Equal, round and reactive pupils present EOM: EOMs intact bilaterally Neck Neck: Yes normal visual inspection, Yes full ROM and Yes no lymphadenopathy Chest Chest palpation & inspection: normal inspection of the chest Resp Effort & Inspection: normal respiratory effort and able to speak in complete sentences Auscultation: clear to auscultation bilaterally Cardio Rate: regular rate Rhythm: regular rhythm GI Inspection: Yes normal to inspection Neuro General: patient oriented x3 and moves all extremities Cranial nerves: Yes Equal, round and reactive pupils present Cognition (Neuro): normal cognition Motor exam (neuro): 5/5 motor strength present throughout Sensory Exam: Normal double simultaneous stimulation for sensation Coordination: [id number] test normal Extrem General: Yes normal to inspection, Yes full ROM and Yes capillary refill normal Psych Appearance: grossly normal Mental Status: mental status grossly normal Affect: normal affect Attitude: cooperative Thought process: Normal thought process present Thought content: Normal thought content present Insight: Good insight present (Psych) Medical Decision Making MDM Narrative Medical decision making narrative: Patient is a 51 year old male presenting to the emergency department today with ear pain, a sore throat, and a fever. Patient's physical exam was unremarkable. Patient's rapid COVID-19 test was positive. I explained my physical exam findings as well as all test results to the patient. I answered all questions asked by the patient. I stressed the importance of the patient taking his medication as prescribed. I stressed the importance of the patient following up with his primary care provider. I stressed the importance of the patient returning to the emergency department immediately if his symptoms were to worsen or if he were to develop any dizziness, shortness of breath, difficulty breathing, chest pain, blurry vision, loss of vision, nausea, vomiting, abdominal pain, fever, chills, back pain, or any other complaints. Patient verbalized agreement and understanding with this treatment plan and discharge. Differential Diagnosis Differential Diagnosis: COVID-19 Medical Records Medical records reviewed: Yes I reviewed the patient's medical records. Lab Data Lab results reviewed: Yes I reviewed the patient's lab results. Labs: Lab Results 12/01/21 12/01/21 Range/Units 10:43 10:43 COVID-19 (MARK) Positive A (Negative) COVID-19 Clin Com See Note S. pyogenes GrpA BARNEY Negative (Negative) Discharge Plan Discharge Clinical Impression: COVID-19 Patient Disposition: Home, Self-Care Instructions: COVID-19 (Coronavirus Disease 2019) (ED) Additional Instructions: Follow up with your primary care provider. Return to the emergency department immediately if your symptoms worsen or if you develop any dizziness, shortness of breath, difficulty breathing, chest pain, blurry vision, loss of vision, nausea, vomiting, abdominal pain, fever, chills, back pain, or any other complaints. Prescriptions: No Action losartan 50 mg tablet 50 mg PO DAILY glimepiride 2 mg tablet 2 mg PO DAILY ezetimibe 10 mg tablet 10 mg PO DAILY rosuvastatin 40 mg tablet 40 mg PO BEDTIME duloxetine 60 mg Capsule,Delayed Release(Dr/Ec) 60 mg PO DAILY metformin 1,000 mg tablet 1,000 mg PO BID duloxetine [Cymbalta] 30 mg capsule,delayed release(DR/EC) 30 mg PO DAILY zolpidem 10 mg tablet 10 mg PO BEDTIME PRN (Reason: Insomnia) Jardiance 25 mg tablet 25 mg PO QAM (DME) lancets [FreeStyle Lancets] 28 gauge misc See Rx Instructions topical BID Qty: 100 Rx Instructions: As directed diclofenac sodium 75 mg tablet,delayed release (DR/EC) 75 mg PO BID (DME) FreeStyle Test Strip See Rx Instructions .ROUTE BID Qty: 10 Rx Instructions: As directed Referrals: Valeria Gibson MD [Primary Care Provider] - Stand Alone Forms: Work/School Release Print Language: Bengali
[2021-12-01 10:57] LABS: COVID-19 Test Positive (Negative)
[2021-12-01 10:58] LABS: Strep A Nucleic Acid Negative (Negative)
[2021-12-01 11:04] LABS: IDNOW Serial# 9DB6401D; Influenza A Negative (Negative); Influenza B2 Negative (Negative)
== END 2021-12-01 11:06 | disposition home or self-care (01) ==
PROVIDERS: Emergency Provider Emergency Medicine Emergency Medical Services; PCP Internal Medicine
DX: U07.1 COVID-19 (principal); I10 Essential (primary) hypertension; E11.9 Type 2 diabetes mellitus without complications
CPT/HCPCS: 87502; 87635; 87651; 99282; 99283

== ENCOUNTER 2022-01-16 08:14 | Outpatient (REF) | payer MEDICAID, SELFPAY ==
[2022-01-16 08:28] LABS: MANUAL DIFF FLAG NO
[2022-01-16 08:45] LABS: Basophils Percent Auto 0.4 % (0-2); Eosinophils Absolute Auto 0.1 X10*3/uL (0.0-0.4); Eosinophils Percent Auto 2.6 % (0-4); Hematocrit 40.8 % (42.0-52.0); Imm Gran Abs Auto 0.01 X10*3/uL (0.00-0.03); Imm Gran Pct Auto 0.2 % (0.0-0.4); Lymphocytes Absolute Auto 1.8 X10*3/uL (1.2-4.9); Lymphocytes Percent Auto 33.1 % (20-40); Mean Corpuscular HGB Conc 34.3 g/dl (31.0-36.0); Mean Corpuscular Hemoglobin 30.2 pg (27.0-33.0); Mean Corpuscular Volume 88.1 fL (80.0-98.0); Mean Platelet Volume 9.9 fL (9.4-12.4); Monocytes Absolute Auto 0.5 X10*3/uL (0.1-1.2); Monocytes Percent Auto 8.9 % (2-11); Neutrophils Percent Auto 54.8 % (45-73); Platelet Count 180 X10*3/uL (160-400); Red Blood Count 4.63 X10*6/uL (4.60-5.80); Red Cell Distribution Width 12.6 % (11.0-16.0); White Blood Count 5.4 X10*3/uL (4.8-10.8)
[2022-01-16 09:01] LABS: Estimated Average Glucose 137 mg/dL; Hemoglobin A1c % 6.4 %
[2022-01-16 09:18] LABS: Alanine Aminotransferase 24 U/L (0-40); Albumin Level 4.2 g/dL (3.5-5.0); Alkaline Phosphatase 60 U/L (39-117); Anion Gap 13 (12-20); Aspartate Amino Transferase 22 U/L (5-37); Bilirubin Total 0.5 mg/dL (0.0-1.0); Blood Urea Nitrogen 22 mg/dL (9-16); Calcium 9.7 mg/dL (8.4-10.2); Carbon Dioxide 27 mmol/L (22-29); Chloride 104 mmol/L (96-108); Cholesterol 108 mg/dL; Estimated Glomerular Filt Rate > 60; Glucose Random 121 mg/dL (60-115); HDL Cholesterol 45 mg/dL; LDL Cholesterol Calculated 50 mg/dl; Potassium 3.7 mmol/L (3.3-5.1); Sodium 140 mmol/L (135-145); Triglycerides 66 mg/dL
[2022-01-16 09:29] LABS: Prostate Specific Antigen 0.31 ng/mL (<0.05-4.0)
[2022-01-16 09:33] LABS: Creatinine Urine 66.96 mg/dL; Microalbumin Urine < 5.0 mg/L
== END 2022-01-16 08:15 | disposition home or self-care (01) ==
LOC: HO.LAB 08:14
PROVIDERS: PCP Internal Medicine; Visit Provider Internal Medicine
DX: Z00.00 Encounter for general adult medical examination without abnormal findings (principal); E11.9 Type 2 diabetes mellitus without complications; I10 Essential (primary) hypertension; E78.2 Mixed hyperlipidemia; Z12.5 Encounter for screening for malignant neoplasm of prostate
CPT/HCPCS: 36415; 80053; 80061; 82043; 83036; 84153; 85025

== ENCOUNTER 2022-02-26 23:01 | Emergency (ER) | payer MEDICAID, SELFPAY ==
[2022-02-27 00:15] VITALS: BP 117/64; PULSE 68; RESP 16; TEMP 37.2; O2SAT 99; BMI 28.2
[2022-02-27 01:25] VITALS: BP 118/67; PULSE 64; RESP 14; O2SAT 95
--- NOTE | 2022-02-27 01:26 | ED_ITS ---
HPI - Back Pain/Injury General Chief Complaint: Back Pain/Injury Stated Complaint: lower back pain Time Seen by Provider: 02/27/22 01:24 History of Present Illness HPI Narrative: 51-year-old male presents today with having back pain. The back pain is over the lower back it radiates down to the right leg. There is no bowel urinary incontinence. There is no focal weakness. The pain is similar to previous bouts. There was no trauma. Patient has a history diabetes already a diclofe nac. No cough no congestion or upper respiratory symptoms. No pain on urination. No history kidney stone. No flank pain. Related Data Home Medications Medication Instructions Recorded Confirmed duloxetine 30 mg capsule,delayed 30 mg PO DAILY 06/15/20 07/08/21 release (Cymbalta) metformin 1,000 mg tablet 1,000 mg PO BID 06/15/20 07/08/21 blood sugar diagnostic (FreeStyle #10 ea 02/06/21 07/08/21 Test strips) diclofenac sodium 75 mg 75 mg PO BID 02/06/21 07/08/21 tablet,delayed release empagliflozin 25 mg tablet 25 mg PO QAM 02/06/21 07/08/21 (Jardiance) lancets 28 gauge (FreeStyle #100 ea 02/06/21 07/08/21 Lancets) zolpidem 10 mg tablet 10 mg PO BEDTIME PRN Insomnia 02/06/21 07/08/21 duloxetine 60 mg capsule,delayed 60 mg PO DAILY 04/11/21 07/08/21 release ezetimibe 10 mg tablet 10 mg PO DAILY 04/11/21 07/08/21 glimepiride 2 mg tablet 2 mg PO DAILY 04/11/21 07/08/21 losartan 50 mg tablet 50 mg PO DAILY 04/11/21 07/08/21 rosuvastatin 40 mg tablet 40 mg PO BEDTIME 04/11/21 07/08/21 Previous Rx's Medication Instructions Recorded cyclobenzaprine 10 mg tablet 10 mg PO TID PRN pain #14 tabs 02/27/22 Allergies Allergy/AdvReac Type Severity Reaction Status Date / Time No Known Allergies Allergy Verified 08/14/21 13:07 Review of Systems Review of Systems: Positive back pain rating down to the leg No bowel urinary incontinence No focal weakness All system reviewed otherwise negative Yes all other systems are reviewed and are negative PMFSH Past Medical History Attestation statement: The following information was validated with the patient. Medical History Arthritis COVID-19 vaccine series completed Depression Diabetes mellitus Elevated cholesterol History of steroid therapy HTN (hypertension) Low back pain Sacroiliac joint dysfunction of right side Sacroiliitis Surgical History Surgical history unknown Social History Social History Alcohol intake: never Patient Tobacco Use Status: Never used Tobacco Use of substances other than those prescribed or required for medical reasons: No Advance Directives: No Physical Exam Vital Signs: Vital Signs: Last Vital Signs Temp 98.9 F 02/27/22 00:15 Pulse 64 02/27/22 01:25 Resp 14 02/27/22 01:25 BP 118/67 02/27/22 01:25 Pulse Ox 95 02/27/22 01:25 O2 Del Method 02/27/22 01:25 BMI result Body Mass Index 28.2 Appearance: Alert. Oriented X3. No acute distress. Eyes: Pupils equal, round and reactive to light. ENT: Pharynx normal. Neck: Normal inspection. Neck supple. No lymph nodes noted. No crepitus CVS: Normal heart rate and rhythm. Pulses normal. Normal S1 and S2 Respiratory: No respiratory distress. Breath sounds normal. No Wheezing. No rales Abdomen: Soft and nontender. No rigidity. No distention. good BS x4 Examination of the back there is no spinal tenderness elicited on palpation. Positive paraspinal muscle tenderness bilaterally. There is no CVA tenderness elicited. Sensation over the leg grossly intact reflexes equal or patella able to ambulate. Negative straight leg raise test. Skin: Skin warm and dry. Normal skin color. Normal skin turgor. Extremities: No lower extremity edema. Neurovascular intact to all extremities. No Lacerations. No Rash Neuro: Oriented X 3. No motor deficit. No sensory deficit. Moving all extermities. No slurred speech MDM - Back Pain/Injury MDM Narrative Medical decision making narrative: Positive back pain radiating down to the leg question sciatica. There is no bow el urinary incontinence no signs of cauda equina syndrome. No history of IV drug use no evidence for spinal abscess patient well appearing neurologically intact will discharge patient home already on diclofenac will go ahead and start patient on muscle relaxants. Close follow-up on an outpatient basis. In stable condition Discharge Plan Discharge Clinical Impression: Sciatica Patient Disposition: Home, Self-Care Instructions: Sciatica (ED) Prescriptions: New cyclobenzaprine 10 mg tablet 10 mg PO TID PRN (Reason: pain) Qty: 14 0RF No Action losartan 50 mg tablet 50 mg PO DAILY glimepiride 2 mg tablet 2 mg PO DAILY ezetimibe 10 mg tablet 10 mg PO DAILY rosuvastatin 40 mg tablet 40 mg PO BEDTIME duloxetine 60 mg Capsule,Delayed Release(Dr/Ec) 60 mg PO DAILY metformin 1,000 mg tablet 1,000 mg PO BID duloxetine [Cymbalta] 30 mg capsule,delayed release(DR/EC) 30 mg PO DAILY zolpidem 10 mg tablet 10 mg PO BEDTIME PRN (Reason: Insomnia) Jardiance 25 mg tablet 25 mg PO QAM (DME) lancets [FreeStyle Lancets] 28 gauge misc See Rx Instructions topical BID Qty: 100 Rx Instructions: As directed diclofenac sodium 75 mg tablet,delayed release (DR/EC) 75 mg PO BID (DME) FreeStyle Test Strip See Rx Instructions .ROUTE BID Qty: 10 Rx Instructions: As directed Referrals: Physician,Nonstaff [Primary Care Provider] - Print Language: Puerto Rican
== END 2022-02-27 01:41 | disposition home or self-care (01) ==
PROVIDERS: Emergency Provider Emergency Medicine Emergency Medical Services
DX: M54.42 Lumbago with sciatica, left side (principal); M54.41 Lumbago with sciatica, right side; Z79.899 Other long term (current) drug therapy
CPT/HCPCS: 99283; 99284

== ENCOUNTER 2022-04-11 09:12 | Outpatient (REF) | payer MEDICAID, SELFPAY ==
[2022-04-11 10:46] LABS: Estimated Average Glucose 146 mg/dL; Hemoglobin A1c % 6.7 %
[2022-04-11 11:22] LABS: Alanine Aminotransferase 18 U/L (0-40); Albumin Level 4.4 g/dL (3.5-5.0); Alkaline Phosphatase 60 U/L (39-117); Anion Gap 17 (12-20); Aspartate Amino Transferase 17 U/L (5-37); Bilirubin Total 0.5 mg/dL (0.0-1.0); Blood Urea Nitrogen 25 mg/dL (9-16); Calcium 9.8 mg/dL (8.4-10.2); Carbon Dioxide 26 mmol/L (22-29); Chloride 103 mmol/L (96-108); Estimated Glomerular Filt Rate > 60; Glucose Random 119 mg/dL (60-115); Sodium 142 mmol/L (135-145); Total Protein 7.3 g/dL (6.5-8.0)
== END 2022-04-11 09:13 | disposition home or self-care (01) ==
LOC: HO.LAB 09:12
PROVIDERS: PCP Internal Medicine; Visit Provider Internal Medicine
DX: E11.9 Type 2 diabetes mellitus without complications (principal); E78.00 Pure hypercholesterolemia, unspecified; I10 Essential (primary) hypertension
CPT/HCPCS: 36415; 80053; 83036

== ENCOUNTER 2022-07-18 09:11 | Outpatient (REF) | payer SELFPAY ==
[2022-07-18 10:54] LABS: Estimated Average Glucose 163 mg/dL; Hemoglobin A1c % 7.3 %
[2022-07-18 11:05] LABS: Alanine Aminotransferase 39 U/L (0-40); Albumin Level 4.2 g/dL (3.5-5.0); Alkaline Phosphatase 65 U/L (39-117); Anion Gap 12 (12-20); Aspartate Amino Transferase 26 U/L (5-37); Bilirubin Total 0.6 mg/dL (0.0-1.0); Blood Urea Nitrogen 18 mg/dL (9-16); Calcium 9.4 mg/dL (8.4-10.2); Carbon Dioxide 27 mmol/L (22-29); Chloride 106 mmol/L (96-108); Estimated Glomerular Filt Rate > 60; Glucose Random 99 mg/dL (60-115); Potassium 4.1 mmol/L (3.3-5.1); Sodium 141 mmol/L (135-145)
== END 2022-07-18 09:12 | disposition home or self-care (01) ==
LOC: HO.LAB 09:11
PROVIDERS: PCP Internal Medicine; Visit Provider Internal Medicine
DX: E11.9 Type 2 diabetes mellitus without complications (principal); E78.2 Mixed hyperlipidemia; I10 Essential (primary) hypertension; M51.16 Intervertebral disc disorders with radiculopathy, lumbar region
CPT/HCPCS: 36415; 80053; 83036

== ENCOUNTER 2022-10-10 07:58 | Outpatient (REF) | payer MEDICAID, SELFPAY ==
[2022-10-10 08:08] LABS: MANUAL DIFF FLAG NO
[2022-10-10 08:32] LABS: Basophils Percent Auto 0.2 % (0-2); Eosinophils Absolute Auto 0.1 X10*3/uL (0.0-0.4); Eosinophils Percent Auto 2.5 % (0-4); Hematocrit 37.7 % (42.0-52.0); Hemoglobin 13.2 g/dl (14.0-18.0); Imm Gran Abs Auto 0.03 X10*3/uL (0.00-0.03); Imm Gran Pct Auto 0.6 % (0.0-0.4); Lymphocytes Absolute Auto 1.6 X10*3/uL (1.2-4.9); Lymphocytes Percent Auto 30.9 % (20-40); Mean Corpuscular Hemoglobin 29.9 pg (27.0-33.0); Mean Corpuscular Volume 85.3 fL (80.0-98.0); Monocytes Absolute Auto 0.4 X10*3/uL (0.1-1.2); Neutrophils Absolute Auto 3.1 x10*3/uL (2.0-8.3); Neutrophils Percent Auto 58.8 % (45-73); Platelet Count 169 X10*3/uL (160-400); Red Blood Count 4.42 X10*6/uL (4.60-5.80); Red Cell Distribution Width 12.3 % (11.0-16.0); White Blood Count 5.3 X10*3/uL (4.8-10.8)
[2022-10-10 08:44] LABS: Estimated Average Glucose 180 mg/dL; Hemoglobin A1c % 7.9 %
[2022-10-10 09:09] LABS: Alanine Aminotransferase 32 U/L (0-40); Alkaline Phosphatase 61 U/L (39-117); Anion Gap 13 (12-20); Aspartate Amino Transferase 19 U/L (5-37); Bilirubin Total 0.5 mg/dL (0.0-1.0); Blood Urea Nitrogen 19 mg/dL (9-16); Calcium 9.6 mg/dL (8.4-10.2); Carbon Dioxide 26 mmol/L (22-29); Chloride 104 mmol/L (96-108); Cholesterol 106 mg/dL; Estimated Glomerular Filt Rate > 60; Glucose Random 265 mg/dL (60-115); HDL Cholesterol 42 mg/dL; LDL Cholesterol Calculated 56 mg/dl; Potassium 4.1 mmol/L (3.3-5.1); Sodium 139 mmol/L (135-145); Total Protein 6.7 g/dL (6.5-8.0); Triglycerides 44 mg/dL
[2022-10-10 09:18] LABS: Prostate Specific Antigen 0.31 ng/mL (<0.05-4.0); Thyroid Stimulating Hormone 2.02 uIU/mL (0.32-4.0)
[2022-10-10 09:49] LABS: Microalbumin Urine < 5.0 mg/L
== END 2022-10-10 07:59 | disposition home or self-care (01) ==
LOC: HO.LAB 07:58
PROVIDERS: PCP Internal Medicine; Visit Provider Internal Medicine
DX: Z12.5 Encounter for screening for malignant neoplasm of prostate (principal); E11.65 Type 2 diabetes mellitus with hyperglycemia; E78.2 Mixed hyperlipidemia; I10 Essential (primary) hypertension
CPT/HCPCS: 36415; 80053; 80061; 82043; 83036; 84153; 84443; 85025

== ENCOUNTER 2022-12-14 11:23 | Emergency (ER) | payer MEDICAID, SELFPAY ==
[2022-12-14 12:46] VITALS: BP 126/63; PULSE 80; RESP 18; TEMP 37.1; O2SAT 98; BMI 29.1
--- NOTE | 2022-12-14 12:49 | ED.GENADULT ---
HPI - General Adult General Chief complaint: General Medical Stated complaint: infection in throat Time Seen by Provider: 12/14/22 13:39 Source: patient and RN notes reviewed Mode of arrival: ambulatory Limitations: no limitations History of Present Illness HPI narrative: This is a 52-year-old male, with a past medical history of diabetes, presenting to the emergency department with complaints of sore throat and bilateral ear pain. Patient states that his symptoms started this morning, denies any fevers, chills, cough, chest pain, shortness of breath. Denies abdominal pain, nausea, vomiting, or diarrhea. Denies any sick contacts. He endorses body aches. Denies taking any medications at home to treat his current symptoms. No other complaints or concerns at this time. MD complaint: Sore throat, ear pain Radiation: non-radiation Quality: aching Pain Consistency: constant Relieving factors: none Exacerbating factors: none Associated symptoms: denies other symptoms Treatments prior to arrival: none Related Data Home Medications Medication Instructions Recorded Confirmed duloxetine 30 mg capsule,delayed 30 mg PO DAILY 06/15/20 07/08/21 release (Cymbalta) metformin 1,000 mg tablet 1,000 mg PO BID 06/15/20 07/08/21 blood sugar diagnostic (FreeStyle #10 ea 02/06/21 07/08/21 Test strips) diclofenac sodium 75 mg 75 mg PO BID 02/06/21 07/08/21 tablet,delayed release empagliflozin 25 mg tablet 25 mg PO QAM 02/06/21 07/08/21 (Jardiance) lancets 28 gauge (FreeStyle #100 ea 02/06/21 07/08/21 Lancets) zolpidem 10 mg tablet 10 mg PO BEDTIME PRN Insomnia 02/06/21 07/08/21 duloxetine 60 mg capsule,delayed 60 mg PO DAILY 04/11/21 07/08/21 release ezetimibe 10 mg tablet 10 mg PO DAILY 04/11/21 07/08/21 glimepiride 2 mg tablet 2 mg PO DAILY 04/11/21 07/08/21 losartan 50 mg tablet 50 mg PO DAILY 04/11/21 07/08/21 rosuvastatin 40 mg tablet 40 mg PO BEDTIME 04/11/21 07/08/21 Previous Rx's Medication Instructions Recorded cyclobenzaprine 10 mg tablet 10 mg PO TID PRN pain #14 tabs 02/27/22 amoxicillin 875 mg-potassium 1 tab PO BID 7 days #14 tabs 12/14/22 clavulanate 125 mg tablet Allergies Allergy/AdvReac Type Severity Reaction Status Date / Time No Known Allergies Allergy Verified 12/14/22 15:14 Review of Systems Review of Systems: Yes all other systems are reviewed and are negative Constitutional: Constitutional: Reports as per [facility] Past Medical History Medical History Arthritis COVID-19 vaccine series completed Depression Diabetes mellitus Elevated cholesterol History of steroid therapy HTN (hypertension) Low back pain Sacroiliac joint dysfunction of right side Sacroiliitis Surgical History Surgical history unknown Social History Social History Alcohol intake: never Patient Tobacco Use Status: Never used Tobacco Advance Directives: No Advance Directives Information Provided: Yes Physical Exam ED Vital Signs: Vital Signs - 24 hr 12/14/22 12:46 Temperature 98.7 F Pulse Rate 80 Respiratory Rate 18 Blood Pressure 126/63 Pulse Oximetry 98 BMI result Body Mass Index 29.1 Const General: cooperative, comfortable and no acute distress Orientation/consciousness: patient oriented x3 Limitations: no limitations HENMT Other: Oropharynx is erythematous, with bilateral tonsillar hypertrophy and exudates. Uvula is midline, airway is patent. No trismus, drooling, or dysphonia. No mastoid tenderness Head: Yes normal to inspection, Yes normocephalic and Yes atraumatic Ears: hearing grossly normal bilaterally and other (Auditory canal is erythematous and mildly edematous, TMs are intact) General nose exam: Normal external nose present Face and sinus: Yes normal facial exam Mouth: Normal oral and palatal mucosa present, oropharynx normal and moist mucous membranes Throat: Yes posterior oropharynx normal Eyes General: appearance normal, both eyes and all related structures Eyelids: Yes eyelids normal Conjunctivae: conjunctivae normal Sclerae: sclerae normal Pupils: Equal, round and reactive pupils present EOM: EOMs intact bilaterally Neck Neck: Yes normal visual inspection, Yes full ROM and Yes no lymphadenopathy Lymphatic: no lymphadenopathy noted Chest Chest palpation & inspection: normal inspection of the chest Resp Effort & Inspection: normal respiratory effort and able to speak in complete sentences Auscultation: clear to auscultation bilaterally, no crackles, no rales, no rhonchi and no wheezes Cardio Rate: regular rate Rhythm: regular rhythm Heart sounds: S1 normal heart sound present and S2 normal heart sound present GI Inspection: Yes normal to inspection Skin General skin exam: no rashes or lesions noted Trauma: no lacerations or abrasions Wounds: no wounds Neuro General: patient oriented x3 and moves all extremities Cranial nerves: Yes Equal, round and reactive pupils present Extrem General: Yes normal to inspection Right upper extremity: normal to inspection Left upper extremity: normal to inspection Right lower extremity: normal to inspection Left lower extremity: normal to inspection Course Course Course Narrative: RME: 52 yold male presents to the ED for sore throat and obydaches. Swabs ordered Medical Decision Making Medical Decision Making [facility] Narrative: This is a 52-year-old male presenting to the emergency department for evaluation of sore throat and ear pain since this morning. On examination, oropharynx is erythematous, with bilateral tonsillar hypertrophy, no exudates. Bilateral auditory canals are erythematous, TMs erythematous, intact. Symptoms consistent with otitis media/externa and pharyngitis. Patient will be treated with a course of Augmentin. Vital signs stable, patient educated on return precautions. Patient understands and agrees with plan. Patient stable for discharge. Differential Diagnosis Differential Diagnoses: The differential diagnosis associated with the presentation includes Otitis media, otitis externa, pharyngitis, sinusitis, uvulitis, mastoiditis Lab Data Labs: Lab Results 12/14/22 12/14/22 12/14/22 Range/Units 12:57 12:57 12:57 COVID-19 ([facility]) Negative (Negative) COVID-19 Clin Com See Note Influenza Type A ([facility]) Negative (Negative) Influenza Type B (BARNEY) Negative (Negative) Influenza A & B Note See Note S. pyogenes GrpA BARNEY Negative (Negative) Discharge Plan Discharge Clinical Impression: Pharyngitis, Otitis media Patient Disposition: Home, Self-Care Instructions: Pharyngitis (ED), Ear Infection (ED) Additional Instructions: You have an ear infection, please take prescribed antibiotic as directed. You tested negative for COVID and strep throat today. Take entire course of antibiotics even if your feeling better. If any new or worsening symptoms occur including but not limited to fevers, chills, worsening sore throat, unable to swallow, chest pain, shortness of breath, please return for re-evaluation. Prescriptions: New amoxicillin-pot clavulanate 875-125 mg tablet 1 tab PO BID 7 Days Qty: 14 0RF No Action losartan 50 mg tablet 50 mg PO DAILY glimepiride 2 mg tablet 2 mg PO DAILY ezetimibe 10 mg tablet 10 mg PO DAILY rosuvastatin 40 mg tablet 40 mg PO BEDTIME duloxetine 60 mg Capsule,Delayed Release(Dr/Ec) 60 mg PO DAILY cyclobenzaprine 10 mg tablet 10 mg PO TID PRN (Reason: pain) Qty: 14 0RF metformin 1,000 mg tablet 1,000 mg PO BID duloxetine [Cymbalta] 30 mg capsule,delayed release(DR/EC) 30 mg PO DAILY zolpidem 10 mg tablet 10 mg PO BEDTIME PRN (Reason: Insomnia) Jardiance 25 mg tablet 25 mg PO QAM (DME) lancets [FreeStyle Lancets] 28 gauge misc See Rx Instructions topical BID Qty: 100 Rx Instructions: As directed diclofenac sodium 75 mg tablet,delayed release (DR/EC) 75 mg PO BID (DME) FreeStyle Test Strip See Rx Instructions .ROUTE BID Qty: 10 Rx Instructions: As directed Interventions: ED Discharge Assessment Last Done: 12/14/22 15:17 Discharge Date/Time: 12/14/22 15:18
== END 2022-12-14 15:18 | disposition home or self-care (01) ==
PROVIDERS: Emergency Provider Emergency Medicine; PCP Internal Medicine
DX: J02.9 Acute pharyngitis, unspecified (principal); H66.93 Otitis media, unspecified, bilateral; Z20.822 Contact with and (suspected) exposure to COVID-19; Z20.828 Contact with and (suspected) exposure to other viral communicable diseases; Z79.899 Other long term (current) drug therapy
CPT/HCPCS: 87502; 87635; 87651; 99282; 99283

== ENCOUNTER 2023-01-08 12:57 | Outpatient (REF) | payer MEDICAID, SELFPAY ==
--- NOTE | ~2023-01-08 | MR_ITS ---
MR LUMBAR SPINE WITHOUT CONTRAST CLINICAL INFORMATION: Spinal stenosis. COMPARISON: Lumbar spine MRI 03/16/2015. TECHNIQUE: MRI of the lumbar spine was obtained using routine sequences without contrast. FINDINGS: There are 5 nonrib-bearing lumbar-type vertebral bodies. Lumbar alignment is normal. The vertebral body heights are maintained. The disc volumes are preserved and the discs remain well-hydrated. There is no bone marrow edema. There are no acute fractures. Conus terminates at the L1 level. Simple left renal cyst which no further imaging follow-up is warranted. No significant extraspinal soft tissue findings. At T11-T12, there is a diffuse annular disc bulge with superimposed small paracentral disc protrusions that mildly narrow the central canal. The L1-L2 and the L2-L3 disc contours are normal. There is no central canal stenosis and there is no foraminal stenosis at these levels. L3-L4: There is a small diffuse annular disc bulge and there is mild bilateral facet arthropathy. No central canal stenosis. There is mild foraminal encroachment bilaterally. L4-L5: Diffuse annular disc bulge and moderate bilateral facet arthropathy. No central canal stenosis. There is mild foraminal encroachment bilaterally. L5-S1: Diffuse annular disc bulge and moderate bilateral facet arthropathy. No central canal stenosis. Mild bilateral foraminal encroachment. MR/MR lumbar spine wo con IMPRESSION: - Mild to moderate lumbar spondylosis. No severe central canal stenosis and no severe foraminal stenosis within the lumbar spine. - At T11-T12, there is a diffuse annular disc bulge with superimposed small paracentral disc protrusions that mildly narrow the central canal.
== END 2023-01-08 12:58 | disposition home or self-care (01) ==
LOC: HO.MRI 12:57
PROVIDERS: PCP Internal Medicine; Visit Provider Internal Medicine
DX: M48.061 Spinal stenosis, lumbar region without neurogenic claudication (principal)
CPT/HCPCS: 72148

== ENCOUNTER 2023-02-10 08:36 | Outpatient (REF) | payer MEDICAID, SELFPAY ==
[2023-02-10 10:19] LABS: Estimated Average Glucose 146 mg/dL; Hemoglobin A1c % 6.7 % (<6.0)
[2023-02-10 10:48] LABS: Alanine Aminotransferase 21 U/L (0-40); Albumin Level 4.1 g/dL (3.5-5.0); Alkaline Phosphatase 52 U/L (39-117); Anion Gap 9 (12-20); Aspartate Amino Transferase 21 U/L (5-37); Bilirubin Total 0.5 mg/dL (0.0-1.0); Blood Urea Nitrogen 18 mg/dL (9-16); Calcium 9.9 mg/dL (8.4-10.2); Carbon Dioxide 29 mmol/L (22-29); Chloride 105 mmol/L (96-108); Estimated Glomerular Filt Rate > 60; Glucose Random 126 mg/dL (60-115); Potassium 4.1 mmol/L (3.3-5.1); Sodium 139 mmol/L (135-145); Total Protein 7.3 g/dL (6.5-8.0)
== END 2023-02-10 08:37 | disposition home or self-care (01) ==
LOC: HO.LAB 08:36
PROVIDERS: PCP Internal Medicine; Visit Provider Internal Medicine
DX: E11.9 Type 2 diabetes mellitus without complications (principal); E78.00 Pure hypercholesterolemia, unspecified; I10 Essential (primary) hypertension; R53.83 Other fatigue
CPT/HCPCS: 36415; 80053; 83036

== ENCOUNTER 2023-06-15 09:42 | Outpatient (REF) | payer MEDICAID, SELFPAY ==
[2023-06-15 11:17] LABS: Alanine Aminotransferase 23 U/L (0-40); Alkaline Phosphatase 56 U/L (39-117); Anion Gap 12 (12-20); Aspartate Amino Transferase 21 U/L (5-37); Bilirubin Total 0.4 mg/dL (0.0-1.0); Blood Urea Nitrogen 24 mg/dL (9-16); Calcium 9.4 mg/dL (8.4-10.2); Carbon Dioxide 28 mmol/L (22-29); Chloride 102 mmol/L (96-108); Estimated Glomerular Filt Rate > 60; Glucose Random 124 mg/dL (60-115); Potassium 3.8 mmol/L (3.3-5.1); Sodium 138 mmol/L (135-145); Total Protein 7.1 g/dL (6.5-8.0)
== END 2023-06-15 09:43 | disposition home or self-care (01) ==
LOC: HO.LAB 09:42
PROVIDERS: PCP Internal Medicine; Visit Provider Internal Medicine
DX: Z00.00 Encounter for general adult medical examination without abnormal findings (principal); E11.9 Type 2 diabetes mellitus without complications
CPT/HCPCS: 36415; 80053; 83036

== ENCOUNTER 2023-07-30 09:00 | Outpatient (RCR) | payer MEDICAID, SELFPAY ==
[2023-07-20 10:58] VITALS: BP 131/70; PULSE 86
--- NOTE | 2023-07-20 11:39 | MHC.PT.EP ---
[facility] [place] Office [place] Office [place] Office [address] [phone] F: [phone] F: [phone] F: [phone] F: [phone] Physical Therapy Plan of Care Date of Evaluation: 07/20/23 Date of Surgery: NA Diagnosis: Lumbar radiculopathy/ spondylosis Assessment: Gerald is a 53 year old male who is referred to PT for lumbar radiculopathy/ spondylosis . He reports of having h/o chronic low back pain. Has had pain for about 5-10 years. Denies any trauma or falls. On PT examination he presents with 5-8/10 pain at thoraco-lumbar region and low back, TTP over thoraco-lumbar paraspinal, L4-5 spinous process, decreased trunk ROM, decreased core strength, decreased flexibility noted over B hamstrings, B piriformis and lumbar paraspinals, altered posture and gait. He lives with and is independent with all ADLS however during periods of increased pain he needs increased rest breaks. He is unemployed. He would benefit from skilled PT to address the aforementioned impairments and improve tolerance to functional activities. Frequency and Duration: The patient will be seen 2/week for 5 weeks. Short Term Goals: 1. Pt will have 50% decrease in pain which will enable him to sleep through the night without pain in 2 weeks. 2. Pt will be able to move his trunk through all planes of motion without any pain which will enable him to perform self care activities without pain in 3 weeks. [facility] Goals: 1. Pt will demonstrate an increase in muscle strength by 1 grade which will enable him to perform activities like cleaning and cooking without pain in 5 weeks. 2. Pt will be independent with all HEP for symptom management and maintenance following d/c in 5 weeks. Treatment Plan: Modalities to reduce pain, spasms and effusion. Manual therapy to restore motion and function. Therapeutic exercise to improve strength and flexibility. Neuromuscular re-education for posture and balance. Therapeutic activities to return to functional activities of daily living. Electronically signed by: Sariah Luu PT DPT Please sign and return to therapist. Thank you for your referral.
--- NOTE | 2023-08-12 10:43 | MHC.PT.DC ---
[facility] [place] Office [place] Office [place] Office [address] [phone] F: [phone] F: [phone] F: [phone] F: [phone] Physical Therapy Discharge Report Diagnosis: Lumbar radiculopathy/ spondylosis Date of Surgery: NA Date of Evaluation: 07/20/23 Date of Discharge: 08/12/23 Treatments to Date: 4 Cancellations to Date: 1 No Shows to Date: 3 Discharge Status: Visit Non-compliance Discharge Summary: Gerald attended 4 PT visits, canceled 1 and no showed 3. He is therefore being d/c from PT for non compliance per our attendance policy. Electronically signed by: Sariah Luu, PT DPT Please sign and return to therapist. Thank you for your referral.
== END 2023-08-12 10:43 | disposition home or self-care (01) ==
LOC: HO.PT 09:00
PROVIDERS: PCP Internal Medicine; Visit Provider Internal Medicine
DX: M54.50 Low back pain, unspecified (principal)
CPT/HCPCS: 97110; 97161

== ENCOUNTER 2023-08-04 01:18 | Emergency (ER) | payer MEDICAID, SELFPAY ==
[2023-08-04 01:25] VITALS: BP 120/71; PULSE 82; RESP 20; TEMP 36.8; O2SAT 99; BMI 29.1
[2023-08-04 03:51] VITALS: BP 106/51; PULSE 69; RESP 14
[2023-08-04 04:00] LABS: Appearance Urine Clear; Color Urine Yellow; Glucose Urine UA >=1000 mg/dL (Negative); Leukocyte Esterase Urine Negative (Negative); Nitrite Urine Negative (Negative); Specific Gravity - Urine >= 1.030 (1.005-1.025); UMIC TRIGGER UACC YES; Urine Blood Negative (Negative); Urine Ketones Negative (Negative); Urine Protein Negative (Neg-Trace)
[2023-08-04 04:05] LABS: Bacteria Urine None Seen (None Seen); Hyaline Casts Urine 0-2 /LPF (0-2); RBC Urine 0-2 /HPF (0-2); Squamous Epithelial Cell Urine 0-2 /HPF (0-2); WBC Urine 0-5 /HPF (0-5)
--- NOTE | 2023-08-04 04:28 | ED.BACK ---
HPI - Back Pain/Injury General Chief Complaint: Back Pain/Injury Stated Complaint: lower back pain Time Seen by Provider: 08/04/23 04:24 Source: patient Mode of arrival: ambulatory Limitations: no limitations History of Present Illness HPI Narrative: Patient with chronic back pain had MRI in 2022 which showed moderate number spondylosis and diffuse arthritis comes here for 4 days of pain patient has not followed up with specialist complaining of increased pain in lower back without any trauma no paresthesia no radiation of the pain to the lower extremity no bladder or bowel Related Data Home Medications Medication Instructions Recorded Confirmed duloxetine 30 mg capsule,delayed 30 mg PO DAILY 06/15/20 07/08/21 release (Cymbalta) metformin 1,000 mg tablet 1,000 mg PO BID 06/15/20 07/08/21 blood sugar diagnostic (FreeStyle #10 ea 02/06/21 07/08/21 Test strips) diclofenac sodium 75 mg 75 mg PO BID 02/06/21 07/08/21 tablet,delayed release empagliflozin 25 mg tablet 25 mg PO QAM 02/06/21 07/08/21 (Jardiance) lancets 28 gauge (FreeStyle #100 ea 02/06/21 07/08/21 Lancets) zolpidem 10 mg tablet 10 mg PO BEDTIME PRN Insomnia 02/06/21 07/08/21 duloxetine 60 mg capsule,delayed 60 mg PO DAILY 04/11/21 07/08/21 release ezetimibe 10 mg tablet 10 mg PO DAILY 04/11/21 07/08/21 glimepiride 2 mg tablet 2 mg PO DAILY 04/11/21 07/08/21 losartan 50 mg tablet 50 mg PO DAILY 04/11/21 07/08/21 rosuvastatin 40 mg tablet 40 mg PO BEDTIME 04/11/21 07/08/21 Previous Rx's Medication Instructions Recorded cyclobenzaprine 10 mg tablet 10 mg PO TID PRN pain #14 tabs 02/27/22 amoxicillin 875 mg-potassium 1 tab PO BID 7 days #14 tabs 12/14/22 clavulanate 125 mg tablet cyclobenzaprine 10 mg tablet 10 mg PO Q8H #20 tabs 08/04/23 morphine 15 mg immediate release 15 mg PO Q8H PRN pain #15 tabs 08/04/23 tablet Allergies Allergy/AdvReac Type Severity Reaction Status Date / Time No Known Allergies Allergy Verified 08/04/23 01:25 Review of Systems Review of Systems: Yes all other systems are reviewed and are negative [facility] Past Medical History Medical History History of steroid therapy COVID-19 vaccine series completed Elevated cholesterol HTN (hypertension) Depression Arthritis Sacroiliac joint dysfunction of right side Sacroiliitis Low back pain Diabetes mellitus Surgical History Surgical history unknown Social History Social History Alcohol intake: never Patient Tobacco Use Status: Never used Tobacco Smoked in Last 30 Days: No Use of substances other than those prescribed or required for medical reasons: No Advance Directives: No Advance Directives Information Provided: No Physical Exam Vital Signs: Vital Signs: Last Vital Signs Temp 97.8 F 08/04/23 04:57 Pulse 67 08/04/23 04:57 Resp 14 08/04/23 04:57 BP 104/59 L 08/04/23 04:57 Pulse Ox 99 08/04/23 01:25 O2 Del Method Room Air 08/04/23 01:25 BMI result Body Mass Index 29.1 Appearance: Alert. Oriented X3. No acute distress. ENT: Pharynx normal. Oral Mucosa moist Neck: Normal inspection. Neck supple. CVS: Normal heart rate and rhythm. Pulses normal. Respiratory: No respiratory distress. Equal air entry bilateral, Abdomen: Soft and nontender. Bowel sounds are present, no mass palpable, no CVA tenderness back: Diffuse tenderness lower lumbar spine no deformity SLR negative bilaterally Skin: Skin warm and dry. Normal skin color. Normal skin turgor. Extremities: No lower extremity edema. No calf tenderness Neuro: Oriented X 3. No motor deficit. No sensory deficit.No cerebellar signs , cranial nerves II-XII intact Medications Administered Discontinued Medications Generic Name Dose Route Start Last Admin Trade Name Freq PRN Reason Stop Dose Admin Cyclobenzaprine HCl 10 mg 08/04/23 04:28 08/04/23 04:37 Cyclobenzaprine Hcl 10 Mg Tablet PO 08/04/23 04:29 10 mg ONCE ONE Administration Morphine Sulfate 15 mg 08/04/23 04:28 08/04/23 04:37 Morphine Sulfate Immed Release 15 Mg Tablet PO 08/04/23 04:29 15 mg ONCE ONE Administration Medical Decision Making Medical Decision Making [facility] Narrative: Patient with chronic low back pain without any signs spinal cord impingement will treat him for chronic pain with pain medication and muscle relaxer Lab Data [facility] Lab Attestation statement: I reviewed the patient's lab results. Labs: Lab Results 08/04/23 Range/Units 03:54 Urine Color Yellow Urine Appearance Clear Urine pH 6.0 (5.0-9.0) Ur Specific [place] >= 1.030 H (1.005-1.025) Urine Protein Negative (Neg-Trace) mg/dL Urine Glucose (UA) >=1000 H (Negative) mg/dL Urine Ketones Negative (Negative) mg/dL Urine Blood Negative (Negative) Urine Nitrite Negative (Negative) Ur Leukocyte Esterase Negative (Negative) Urine RBC 0-2 (0-2) /HPF Urine WBC 0-5 (0-5) /HPF Ur Squamous Epith Cells 0-2 (0-2) /HPF Urine Bacteria None Seen (None Seen) Hyaline Casts 0-2 (0-2) /LPF Discharge Plan Discharge Clinical Impression: Low back pain Patient Disposition: Home, Self-Care Instructions: Chronic Back Pain (DC) Additional Instructions: Take pain medication muscle relaxants as advised Follow with pain clinic/PCP Prescriptions: New cyclobenzaprine 10 mg tablet 10 mg PO Q8H Qty: 20 0RF morphine 15 mg tablet 15 mg PO Q8H PRN (Reason: pain) Qty: 15 0RF Rx Instructions: Partial Fill upon patient request. No Action losartan 50 mg tablet 50 mg PO DAILY glimepiride 2 mg tablet 2 mg PO DAILY ezetimibe 10 mg tablet 10 mg PO DAILY rosuvastatin 40 mg tablet 40 mg PO BEDTIME duloxetine 60 mg Capsule,Delayed Release(Dr/Ec) 60 mg PO DAILY cyclobenzaprine 10 mg tablet 10 mg PO TID PRN (Reason: pain) Qty: 14 0RF amoxicillin-pot clavulanate 875-125 mg tablet 1 tab PO BID 7 Days Qty: 14 0RF metformin 1,000 mg tablet 1,000 mg PO BID duloxetine [Cymbalta] 30 mg capsule,delayed release(DR/EC) 30 mg PO DAILY zolpidem 10 mg tablet 10 mg PO BEDTIME PRN (Reason: Insomnia) Jardiance 25 mg tablet 25 mg PO QAM (DME) lancets [FreeStyle Lancets] 28 gauge misc See Rx Instructions topical BID Qty: 100 Rx Instructions: As directed diclofenac sodium 75 mg tablet,delayed release (DR/EC) 75 mg PO BID (DME) FreeStyle Test Strip See Rx Instructions .ROUTE BID Qty: 10 Rx Instructions: As directed Interventions: ED Discharge Assessment Last Done: 08/04/23 05:00 Discharge Date/Time: 08/04/23 05:02
[2023-08-04] MEDS: Cyclobenzaprine HCl 10 MG TABLET PO (04:37)
[2023-08-04] MEDS: Morphine Sulfate Immed Release 15 MG TABLET PO (04:37)
[2023-08-04 04:57] VITALS: BP 104/59; PULSE 67; RESP 14; TEMP 36.6
== END 2023-08-04 05:02 | disposition home or self-care (01) ==
PROVIDERS: Emergency Provider Internal Medicine; PCP Internal Medicine
DX: M54.50 Low back pain, unspecified (principal); G89.4 Chronic pain syndrome; E11.8 Type 2 diabetes mellitus with unspecified complications; I10 Essential (primary) hypertension; E78.00 Pure hypercholesterolemia, unspecified; Z79.4 Long term (current) use of insulin; Z79.84 Long term (current) use of oral hypoglycemic drugs; Z79.02 Long term (current) use of antithrombotics/antiplatelets
CPT/HCPCS: 81001; 81003; 99283; 99284

== ENCOUNTER 2023-11-03 06:37 | Outpatient (REF) | payer MEDICAID, SELFPAY ==
[2023-11-03 06:49] LABS: MANUAL DIFF FLAG NO
[2023-11-03 08:04] LABS: Basophils Percent Auto 0.4 % (0-2); Eosinophils Absolute Auto 0.1 X10*3/uL (0.0-0.4); Eosinophils Percent Auto 1.7 % (0-4); Hematocrit 37.6 % (42.0-52.0); Hemoglobin 13.2 g/dl (14.0-18.0); Imm Gran Abs Auto 0.02 X10*3/uL (0.00-0.03); Imm Gran Pct Auto 0.4 % (0.0-0.4); Lymphocytes Absolute Auto 1.6 X10*3/uL (1.2-4.9); Lymphocytes Percent Auto 31.2 % (20-40); Mean Corpuscular HGB Conc 35.1 g/dl (31.0-36.0); Mean Corpuscular Hemoglobin 30.8 pg (27.0-33.0); Mean Corpuscular Volume 87.6 fL (80.0-98.0); Mean Platelet Volume 9.7 fL (9.4-12.4); Monocytes Absolute Auto 0.5 X10*3/uL (0.1-1.2); Monocytes Percent Auto 9.4 % (2-11); Neutrophils Percent Auto 56.9 % (45-73); Platelet Count 194 X10*3/uL (160-400); Red Blood Count 4.29 X10*6/uL (4.60-5.80); White Blood Count 5.2 X10*3/uL (4.8-10.8)
[2023-11-03 08:17] LABS: Estimated Average Glucose 137 mg/dL; Hemoglobin A1c % 6.4 % (<6.0)
[2023-11-03 08:32] LABS: Creatinine Urine 96.85 mg/dL; Microalbumin Urine < 5.0 mg/L
[2023-11-03 08:46] LABS: Alanine Aminotransferase 26 U/L (0-40); Alkaline Phosphatase 56 U/L (39-117); Anion Gap 12 (12-20); Aspartate Amino Transferase 24 U/L (5-37); Bilirubin Total 0.4 mg/dL (0.0-1.0); Blood Urea Nitrogen 21 mg/dL (9-16); Calcium 9.5 mg/dL (8.4-10.2); Carbon Dioxide 28 mmol/L (22-29); Chloride 106 mmol/L (96-108); Cholesterol 109 mg/dL (<200); Estimated Glomerular Filt Rate > 60; Glucose Random 101 mg/dL (60-115); HDL Cholesterol 46 mg/dL (>40); LDL Cholesterol Calculated 49 mg/dL (<100); Potassium 3.6 mmol/L (3.3-5.1); Sodium 142 mmol/L (135-145); Total Protein 7.1 g/dL (6.5-8.0); Triglycerides 71 mg/dL (<150)
[2023-11-03 08:52] LABS: Prostate Specific Antigen 0.24 ng/mL (<0.05-4.0)
== END 2023-11-03 06:38 | disposition home or self-care (01) ==
LOC: HO.LAB 06:37
PROVIDERS: PCP Internal Medicine; Visit Provider Internal Medicine
DX: Z12.5 Encounter for screening for malignant neoplasm of prostate (principal); E11.9 Type 2 diabetes mellitus without complications; E78.00 Pure hypercholesterolemia, unspecified; I10 Essential (primary) hypertension; N40.0 Benign prostatic hyperplasia without lower urinary tract symptoms
CPT/HCPCS: 36415; 80053; 80061; 82043; 82570; 83036; 84153; 85025

== ENCOUNTER 2024-02-03 06:21 | Outpatient (REF) | payer MEDICAID, SELFPAY ==
[2024-02-03 07:19] LABS: Estimated Average Glucose 223 mg/dL; Hemoglobin A1c % 9.4 % (<6.0)
[2024-02-03 07:40] LABS: Alanine Aminotransferase 22 U/L (0-40); Albumin Level 4.2 g/dL (3.5-5.0); Alkaline Phosphatase 67 U/L (39-117); Anion Gap 11 (12-20); Aspartate Amino Transferase 21 U/L (5-37); Bilirubin Total 0.6 mg/dL (0.0-1.0); Blood Urea Nitrogen 18 mg/dL (9-16); Calcium 9.9 mg/dL (8.4-10.2); Carbon Dioxide 28 mmol/L (22-29); Chloride 104 mmol/L (96-108); Estimated Glomerular Filt Rate > 60; Glucose Random 199 mg/dL (60-115); Potassium 3.7 mmol/L (3.3-5.1); Sodium 139 mmol/L (135-145); Total Protein 7.5 g/dL (6.5-8.0)
== END 2024-02-03 06:22 | disposition home or self-care (01) ==
LOC: HO.LAB 06:21
PROVIDERS: PCP Internal Medicine; Visit Provider Internal Medicine
DX: Z00.00 Encounter for general adult medical examination without abnormal findings (principal); E11.9 Type 2 diabetes mellitus without complications; E78.00 Pure hypercholesterolemia, unspecified; I10 Essential (primary) hypertension
CPT/HCPCS: 36415; 80053; 83036

== ENCOUNTER 2024-04-08 16:30 | Emergency (ER) | payer MEDICAID, SELFPAY ==
--- NOTE | ~2024-04-08 | XR_ITS ---
EXAMINATION: XR CHEST CLINICAL INFORMATION: Chest pain COMPARISON: 11/16/2015 TECHNIQUE: 2 views of the chest were obtained. FINDINGS: No significant abnormality is noted involving the heart, lungs, mediastinum, bony thorax or soft tissues. XR/XR chest 2V IMPRESSION: No acute process. Electronically signed by: Benny Wright MD 04/08/2024 06:32 PM EDT RP
[2024-04-08 16:34] VITALS: BP 143/70; PULSE 87; RESP 20; TEMP 36.6; O2SAT 97; BMI 28.2
--- NOTE | 2024-04-08 16:40 | ED_ITS ---
HPI - General Adult General Chief complaint: General Medical Stated complaint: elevated blood sugar 448 Time Seen by Provider: 04/08/24 17:36 Source: patient Mode of arrival: ambulatory Limitations: no limitations History of Present Illness ED Provider: Tawanna Soto PA-C HPI narrative: Patient is a 53 year old assigned male at with a history of DM presenting to the emergency department today with an elevated blood sugar, chest discomfort, headache, and increased urination. Patient states that today he started to have chest discomfort, headache, and increased urination. Patient states that he noticed his blood sugar was high. Patient denies any dizziness, lightheadedness, abdominal pain, nausea, vomiting, fever, chills, blurry vision, double vision, loss of vision, difficulty breathing, shortness of breath, back pain, night sweats, pain with urination, increased urinary frequency, increased urinary urgency, blood in his urine or stool, syncope or a near syncopal episode, recent trauma or falls, bowel incontinence, bladder incontinence, or any other complaints at this time. Relieving factors: none Exacerbating factors: none Associated symptoms: denies other symptoms Treatments prior to arrival: none Related Data Home Medications ?Medication ?Instructions ?Recorded ?Confirmed duloxetine 30 mg capsule,delayed 30 mg PO DAILY 06/15/20 07/08/21 release (Cymbalta) metformin 1,000 mg tablet 1,000 mg PO BID 06/15/20 07/08/21 blood sugar diagnostic (FreeStyle #10 ea 02/06/21 07/08/21 Test strips) diclofenac sodium 75 mg 75 mg PO BID 02/06/21 07/08/21 tablet,delayed release empagliflozin 25 mg tablet 25 mg PO QAM 02/06/21 07/08/21 (Jardiance) lancets 28 gauge (FreeStyle #100 ea 02/06/21 07/08/21 Lancets) zolpidem 10 mg tablet 10 mg PO BEDTIME PRN Insomnia 02/06/21 07/08/21 duloxetine 60 mg capsule,delayed 60 mg PO DAILY 04/11/21 07/08/21 release ezetimibe 10 mg tablet 10 mg PO DAILY 04/11/21 07/08/21 glimepiride 2 mg tablet 2 mg PO DAILY 04/11/21 07/08/21 losartan 50 mg tablet 50 mg PO DAILY 04/11/21 07/08/21 rosuvastatin 40 mg tablet 40 mg PO BEDTIME 04/11/21 07/08/21 Previous Rx's ?Medication ?Instructions ?Recorded cyclobenzaprine 10 mg tablet 10 mg PO TID PRN pain #14 tabs 02/27/22 amoxicillin 875 mg-potassium 1 tab PO BID 7 days #14 tabs 12/14/22 clavulanate 125 mg tablet cyclobenzaprine 10 mg tablet 10 mg PO Q8H #20 tabs 08/04/23 morphine 15 mg immediate release 15 mg PO Q8H PRN pain #15 tabs 08/04/23 tablet Allergies Allergy/AdvReac Type Severity Reaction Status Date / Time No Known Allergies Allergy Verified 04/08/24 16:37 Review of Systems 2 Constitutional: Constitutional: Reports no additional constitutional complaints, Denies chills, Denies fever(s), Reports headache(s) and Denies night sweats Eyes: Eyes: Reports no additional eye complaints, Denies blurry vision, Denies change in vision, Denies diplopia, Denies eye discharge, Denies loss of vision and Denies eye pain ENT: Denies dizziness and Reports headache(s) Cardiovascular: Cardiovascular: Reports no additional cardiovascular complaints, Reports chest pain, Denies lightheadedness, Denies Loss of Consciousness and Denies dyspnea Respiratory: Respiratory: Reports no additional respiratory complaints and Denies dyspnea Gastrointestinal: Gastrointestinal: Reports no additional gastrointestinal complaints, Denies abdominal pain, Denies melena, Denies hematochezia, Denies change in bowel habits and Denies change in stool character Genitourinary: Genitourinary: Reports no additional male genitourinary complaints, Denies hematuria, Denies oliguria, Denies difficulty urinating, Denies dysuria, Reports urinary frequency, Denies urinary hesitancy, Denies urinary incontinence and Denies urinary urgency Musculoskeletal: Musculoskeletal: Reports no additional musculoskeletal complaints, Denies numbness and Denies tingling Neurologic: Denies dizziness, Reports headache(s), Denies loss of vision, Denies numbness and Denies tingling Psychiatric: Psychiatric: Reports no additional psychiatric complaints Endocrine: Endocrine: Reports no additional endocrine complaints Hematologic/Lymphatic: Hematologic/Lymphatic: Reports no additional hematologic/lymphatic complaints Allergic/Immunologic: Allergic/Immunologic: Reports no additional allergic/immunologic complaints PMFSH Past Medical History Attestation statement: The following information was validated with the patient. Source: old records reviewed and nursing notes reviewed Medical History History of steroid therapy COVID-19 vaccine series completed Elevated cholesterol HTN (hypertension) Depression Arthritis Sacroiliac joint dysfunction of right side Sacroiliitis Low back pain Diabetes mellitus Surgical History Surgical history unknown Social History Social History Alcohol intake: current Alcohol intake frequency: holidays/special occasions only Alcohol type: beer Patient Tobacco Use Status: Never used Tobacco Smoked in Last 30 Days: No Use of substances other than those prescribed or required for medical reasons: No Advance Directives: No Advance Directives Information Provided: No Do you have a plan to hurt others: No Plan Physical Exam ED Vital Signs: Vital Signs - 24 hr 04/08/24 16:34 04/08/24 18:03 Temperature 98 F 98.6 F Pulse Rate 87 74 Respiratory Rate 20 14 Blood Pressure 143/70 H 123/76 Pulse Oximetry 97 96 Oxygen Delivery Method Room Air Room Air BMI result Body Mass Index 28.2 Const General: cooperative, no acute distress, alert and awake Nutritional Appearance: well nourished Orientation/consciousness: patient oriented x3 Limitations: no limitations HENMT Head: Yes normal to inspection and Yes atraumatic Ears: hearing grossly normal bilaterally and external ears normal General nose exam: Normal external nose present, no nasal discharge noted and no epistaxis Face and sinus: Yes normal facial exam, No abrasion and No laceration Mouth: Normal oral and palatal mucosa present, no drooling and no muffled voice Eyes General: appearance normal, both eyes and all related structures Periorbital: periorbital findings normal Eyelids: Yes eyelids normal Conjunctivae: conjunctivae normal Pupils: Equal, round and reactive pupils present EOM: EOMs intact bilaterally Neck Neck: Yes normal visual inspection, Yes full ROM and Yes no lymphadenopathy Chest Chest palpation & inspection: normal inspection of the chest Resp Effort & Inspection: normal respiratory effort and able to speak in complete sentences GI Inspection: Yes normal to inspection Neuro General: patient oriented x3 and moves all extremities Cranial nerves: Yes Equal, round and reactive pupils present Cognition (Neuro): normal cognition Extrem General: Yes normal to inspection, Yes full ROM and Yes capillary refill normal Psych Appearance: grossly normal Mental Status: mental status grossly normal Affect: normal affect Attitude: cooperative Thought process: Normal thought process present Thought content: Normal thought content present Insight: Good insight present (Psych) Course Course Course Narrative: This is a Rapid Medical Examination (RME) performed by Zehra Prince PA-C in triage. Full HPI, ROS, assessment and treatment plan per primary provider in the Main ED. 53 yo male hx of T2DM here for eval of elevated blood sugar (POC 448 at home). patient takes metformin. DM not managed w/ insulin. reports assoc heaviness to body, chest discomfort, PUGA, and increased urination. Denies n/v/d. Plan: labs, U, ekg Medications Administered Discontinued Medications Generic Name Dose Route Start Last Admin Trade Name Freq PRN Reason Stop Dose Admin Sodium Chloride 1,000 mls @ 999 mls/hr 04/08/24 17:45 04/08/24 17:56 Ns IV 04/08/24 18:45 999 mls/hr .[facility]M [facility] Administration Medical Decision Making Medical Decision Making MDM Narrative: Patient is a 53 year old assigned male at with a history of DM presenting to the emergency department today with an elevated blood sugar, chest discomfort, headache, and increased urination. Patient's physical exam was unremarkable. Patient's blood work showed hyperglycemia but was otherwise unremarkable. Patient's urine showed no acute process. Patient's EKG was unremarkable. Patient's chest x-ray showed no acute process. I explained my physical exam findings as well as all test results to the patient. I answered all questions asked by the patient. Patient received IV fluids which, upon re- evaluation, he stated it helped his symptoms significantly. I stressed the importance of the patient taking his medication as directed (either prescribed or as the over the counter packaging recommends). I stressed the importance of the patient following up with his primary care provider. I stressed the importance of the patient returning to the emergency department immediately if his symptoms were to worsen or if he were to develop any dizziness, shortness of breath, difficulty breathing, chest pain, blurry vision, loss of vision, nausea, vomiting, abdominal pain, fever, chills, back pain, or any other complaints. Patient verbalized agreement and understanding with this treatment plan and discharge. Differential Diagnosis Differential Diagnoses: The differential diagnosis associated with the presentation includes Chest pain NSTEMI STEMI DKA Hyperglycemia Viral illness Admission/Observation Consideration of admission/observation: Escalation of care including admission/observation considered Patient would have been admitted to the hospital had his work up had any findings where hospital admission was appropriate and his clinical presentation warranted hospital admission. Lab Data [facility] Lab Attestation statement: I reviewed the patient's lab results. My interpretation of these results are in the [facility] Rationale portion of this note. 04/08/24 17:00 04/08/24 17:00 Labs: Lab Results 04/08/24 04/08/24 04/08/24 Range/Units 17:00 17:03 18:37 WBC 5.5 (4.8-10.8) X10*3/uL RBC 4.25 L (4.60-5.80) X10*6/uL Hgb 12.9 L (14.0-18.0) g/dl Hct 35.4 L (42.0-52.0) % MCV 83.3 (80.0-98.0) fL MCH 30.4 (27.0-33.0) pg MCHC 36.4 H (31.0-36.0) g/dl RDW 12.5 (11.0-16.0) % Plt Count 188 (160-400) X10*3/uL MPV 9.2 L (9.4-12.4) fL Immature Gran % (Auto) 0.2 (0.0-0.4) % Neut % (Auto) 59.3 (45-73) % Lymph % (Auto) 32.7 (20-40) % [place] % (Auto) 6.5 (2-11) % Eos % (Auto) 0.9 (0-4) % Baso % (Auto) 0.4 (0-2) % Lymph # (Auto) 1.8 (1.2-4.9) X10*3/uL [place] # (Auto) 0.4 (0.1-1.2) X10*3/uL Eos # (Auto) 0.1 (0.0-0.4) X10*3/uL Baso # (Auto) 0.0 (0.0-0.2) X10*3/uL Abs Immat Gran (auto) 0.01 (0.00-0.03) X10*3/uL Absolute Neuts (auto) 3.3 (2.0-8.3) x10*3/uL Absolute Nucleated RBC 0.000 (0.0-0.012) X10*3/uL Nucleated RBC % (auto) 0.0 (0.0-0.2) /100WBC VBG pH 7.40 (7.32-7.43) VBG pCO2 49 mmHg VBG pO2 43 mmHg VBG HCO3 31 H (22-26) mmol/L VBG O2 Saturation 60.0 % VBG Base Excess 5.4 mmol/L Sodium 137 (135-145) mmol/L Potassium 4.4 (3.3-5.1) mmol/L Chloride 102 (96-108) mmol/L Carbon Dioxide 26 (22-29) mmol/L Anion Gap 13 (12-20) BUN 19 H (9-16) mg/dL Creatinine 1.06 (0.5-1.4) mg/dL Estim Creat Clear Calc 97.7 Estimated GFR > 60 Random Glucose 421 H* (60-115) mg/dL Osmolality 310 H (281-305) mosm/kg Calcium 9.5 (8.4-10.2) mg/dL Magnesium 1.8 (1.6-2.6) mg/dL Total Bilirubin 0.6 (0.0-1.0) mg/dL AST 23 (5-37) U/L ALT 31 (0-40) U/L Alkaline Phosphatase 72 (39-117) U/L Troponin I High Sens < 2.7 (<3.5-35.0) ng/L Total Protein 7.6 (6.5-8.0) g/dL Albumin 4.2 (3.5-5.0) g/dL Lipase 23 (8-78) U/L Beta-Hydroxybutyrate 0.06 (0.02-0.27) mmol/L Urine Color Urine Appearance Urine pH (5.0-9.0) Ur Specific [place] (1.005-1.025) Urine Protein (Neg-Trace) mg/dL Urine Glucose (UA) (Negative) mg/dL Urine Ketones (Negative) mg/dL Urine Blood (Negative) Urine Nitrite (Negative) Ur Leukocyte Esterase (Negative) Urine RBC (0-2) /HPF Urine WBC (0-5) /HPF Ur Squamous Epith Cells (0-2) /HPF Urine Bacteria (None Seen) Hyaline Casts (0-2) /LPF Influenza Type A (PCR) NEGATIVE (Negative) Influenza Type B (PCR) NEGATIVE (Negative) RSV RNA Qual (PCR) NEGATIVE (Negative) SARS-CoV-2 RNA (RT-PCR) NEGATIVE (Negative) 04/08/24 Range/Units 19:34 WBC (4.8-10.8) X10*3/uL RBC (4.60-5.80) X10*6/uL Hgb (14.0-18.0) g/dl Hct (42.0-52.0) % MCV (80.0-98.0) fL MCH (27.0-33.0) pg MCHC (31.0-36.0) g/dl RDW (11.0-16.0) % Plt Count (160-400) X10*3/uL MPV (9.4-12.4) fL Immature Gran % (Auto) (0.0-0.4) % Neut % (Auto) (45-73) % Lymph % (Auto) (20-40) % [place] % (Auto) (2-11) % Eos % (Auto) (0-4) % Baso % (Auto) (0-2) % Lymph # (Auto) (1.2-4.9) X10*3/uL [place] # (Auto) (0.1-1.2) X10*3/uL Eos # (Auto) (0.0-0.4) X10*3/uL Baso # (Auto) (0.0-0.2) X10*3/uL Abs Immat Gran (auto) (0.00-0.03) X10*3/uL Absolute Neuts (auto) (2.0-8.3) x10*3/uL Absolute Nucleated RBC (0.0-0.012) X10*3/uL Nucleated RBC % (auto) (0.0-0.2) /100WBC VBG pH (7.32-7.43) VBG pCO2 mmHg VBG pO2 mmHg VBG HCO3 (22-26) mmol/L VBG O2 Saturation % VBG Base Excess mmol/L Sodium (135-145) mmol/L Potassium (3.3-5.1) mmol/L Chloride (96-108) mmol/L Carbon Dioxide (22-29) mmol/L Anion Gap (12-20) BUN (9-16) mg/dL Creatinine (0.5-1.4) mg/dL Estim Creat Clear Calc Estimated GFR Random Glucose (60-115) mg/dL Osmolality (281-305) mosm/kg Calcium (8.4-10.2) mg/dL Magnesium (1.6-2.6) mg/dL Total Bilirubin (0.0-1.0) mg/dL AST (5-37) U/L ALT (0-40) U/L Alkaline Phosphatase (39-117) U/L Troponin I High Sens (<3.5-35.0) ng/L Total Protein (6.5-8.0) g/dL Albumin (3.5-5.0) g/dL Lipase (8-78) U/L Beta-Hydroxybutyrate (0.02-0.27) mmol/L Urine Color Yellow Urine Appearance Clear Urine pH 6.5 (5.0-9.0) Ur Specific [place] >= 1.030 H (1.005-1.025) Urine Protein Negative (Neg-Trace) mg/dL Urine Glucose (UA) >=1000 H (Negative) mg/dL Urine Ketones Negative (Negative) mg/dL Urine Blood Negative (Negative) Urine Nitrite Negative (Negative) Ur Leukocyte Esterase Negative (Negative) Urine RBC 0-2 (0-2) /HPF Urine WBC 0-5 (0-5) /HPF Ur Squamous Epith Cells 0-2 (0-2) /HPF Urine Bacteria None Seen (None Seen) Hyaline Casts 0-2 (0-2) /LPF Influenza Type A (PCR) (Negative) Influenza Type B (PCR) (Negative) RSV RNA Qual (PCR) (Negative) SARS-CoV-2 RNA (RT-PCR) (Negative) Independent Interpretation I performed an independent interpretation of an: EKG and Plain X-Ray Interpretation: My interpretation is in agreement with the radiologist's impression of this imaging study. L EXAMINATION: XR CHEST CLINICAL INFORMATION: Chest pain COMPARISON: 11/16/2015 TECHNIQUE: 2 views of the chest were obtained. FINDINGS: No significant abnormality is noted involving the heart, lungs, mediastinum, bony thorax or soft tissues. XR/XR chest 2V IMPRESSION: No acute process. Electronically signed by: Benny Wright MD 04/08/2024 06:32 PM EDT RP Dictated By: Benny Wright MD Signed By: Electronically signed by Benny Wright MD 04/08/24 1832 Vent. Rate: 081 BPM Atrial Rate: 081 BPM P-R Int: 146 ms QRS Dur: 098 ms QT Int: 354 ms P-R-T Axes: 060 005 034 degrees QTc Int: 411 ms Normal sinus rhythm Normal ECG When compared with ECG of 16-NOV-2015 17:15, No significant change was found DD/ 1647 Radiology Impression Discussion of test interpretation with radiology: I have reviewed the radiologist's reading. Chronic Conditions Patient?s care impacted by: Diabetes Discharge Plan Discharge Clinical Impression: Hyperglycemia, Headache Patient Disposition: Home, Self-Care Instructions: Acute Headache (DC), Diabetic Hyperglycemia (ED) Additional Instructions: Follow up with your primary care provider. Return to the emergency department immediately if your symptoms worsen or if you develop any dizziness, shortness of breath, difficulty breathing, chest pain, blurry vision, loss of vision, nausea, vomiting, abdominal pain, fever, chills, back pain, or any other complaints. Charanjit?seguimiento?con deras m?dico de atenci?n primaria. Acuda inmediatamente al servicio de urgencias si abiola s?ntomas empeoran o si presenta falta de aliento, dificultad para respirar, dolor tor?cico, mareos, aturdimiento, dolor de espalda, dolor abdominal, fiebre, escalofr?os o cualquier otro s?ntoma. Prescriptions: No Action losartan 50 mg tablet 50 mg PO DAILY glimepiride 2 mg tablet 2 mg PO DAILY ezetimibe 10 mg tablet 10 mg PO DAILY rosuvastatin 40 mg tablet 40 mg PO BEDTIME duloxetine 60 mg Capsule,Delayed Release(Dr/Ec) 60 mg PO DAILY cyclobenzaprine 10 mg tablet 10 mg PO TID PRN (Reason: pain) Qty: 14 0RF amoxicillin-pot clavulanate 875-125 mg tablet 1 tab PO BID 7 Days Qty: 14 0RF cyclobenzaprine 10 mg tablet 10 mg PO Q8H Qty: 20 0RF morphine 15 mg tablet 15 mg PO Q8H PRN (Reason: pain) Qty: 15 0RF Rx Instructions: Partial Fill upon patient request. metformin 1,000 mg tablet 1,000 mg PO BID duloxetine [Cymbalta] 30 mg capsule,delayed release(DR/EC) 30 mg PO DAILY zolpidem 10 mg tablet 10 mg PO BEDTIME PRN (Reason: Insomnia) Jardiance 25 mg tablet 25 mg PO QAM (DME) lancets [FreeStyle Lancets] 28 gauge misc See Rx Instructions topical BID Qty: 100 Rx Instructions: As directed diclofenac sodium 75 mg tablet,delayed release (DR/EC) 75 mg PO BID (DME) FreeStyle Test Strip See Rx Instructions .ROUTE BID Qty: 10 Rx Instructions: As directed Referrals: Valeria Gibson MD [Primary Care Provider] - Print Language: Kenyan
--- NOTE | 2024-04-08 16:41 | ECG_ITS ---
Test Reason : cp Blood Pressure : / mmHG Vent. Rate : 081 BPM Atrial Rate : 081 BPM P-R Int : 146 ms QRS Dur : 098 ms QT Int : 354 ms P-R-T Axes : 060 005 034 degrees QTc Int : 411 ms Normal sinus rhythm Normal ECG When compared with ECG of 16-NOV-2015 17:15, No significant change was found Referred By: Richelle Prince Electronically Signed By:CATRACHITO QUINONEZ
[2024-04-08 17:07] LABS: MANUAL DIFF FLAG NO
[2024-04-08 17:08] LABS: Venous Blood Gas Refer to POC result
[2024-04-08 17:08] LABS: VBG Base Excess 5.4 mmol/L; VBG HCO3 31 mmol/L (22-26); VBG pCO2 49 mmHg; VBG pO2 43 mmHg
[2024-04-08 17:08] LABS: Basophils Percent Auto 0.4 % (0-2); Eosinophils Absolute Auto 0.1 X10*3/uL (0.0-0.4); Eosinophils Percent Auto 0.9 % (0-4); Hematocrit 35.4 % (42.0-52.0); Hemoglobin 12.9 g/dl (14.0-18.0); Imm Gran Abs Auto 0.01 X10*3/uL (0.00-0.03); Imm Gran Pct Auto 0.2 % (0.0-0.4); Lymphocytes Absolute Auto 1.8 X10*3/uL (1.2-4.9); Lymphocytes Percent Auto 32.7 % (20-40); Mean Corpuscular HGB Conc 36.4 g/dl (31.0-36.0); Mean Corpuscular Hemoglobin 30.4 pg (27.0-33.0); Mean Corpuscular Volume 83.3 fL (80.0-98.0); Mean Platelet Volume 9.2 fL (9.4-12.4); Monocytes Absolute Auto 0.4 X10*3/uL (0.1-1.2); Monocytes Percent Auto 6.5 % (2-11); Neutrophils Absolute Auto 3.3 x10*3/uL (2.0-8.3); Neutrophils Percent Auto 59.3 % (45-73); Platelet Count 188 X10*3/uL (160-400); Red Blood Count 4.25 X10*6/uL (4.60-5.80); Red Cell Distribution Width 12.5 % (11.0-16.0); White Blood Count 5.5 X10*3/uL (4.8-10.8)
[2024-04-08 17:22] LABS: Beta-Hydroxybutyrate 0.06 mmol/L (0.02-0.27)
[2024-04-08 17:25] LABS: Alanine Aminotransferase 31 U/L (0-40); Albumin Level 4.2 g/dL (3.5-5.0); Alkaline Phosphatase 72 U/L (39-117); Anion Gap 13 (12-20); Aspartate Amino Transferase 23 U/L (5-37); Bilirubin Total 0.6 mg/dL (0.0-1.0); Blood Urea Nitrogen 19 mg/dL (9-16); Calcium 9.5 mg/dL (8.4-10.2); Carbon Dioxide 26 mmol/L (22-29); Chloride 102 mmol/L (96-108); Creatinine Clr Calc Pharmacy 97.7; Estimated Glomerular Filt Rate > 60; Glucose Random 421 mg/dL (60-115); Lipase 23 U/L (8-78); Magnesium 1.8 mg/dL (1.6-2.6); Potassium 4.4 mmol/L (3.3-5.1); Sodium 137 mmol/L (135-145); Total Protein 7.6 g/dL (6.5-8.0)
[2024-04-08 17:29] LABS: Osmolality, Serum 310 mosm/kg (281-305)
[2024-04-08 17:30] LABS: Troponin-I High Sensitivity < 2.7 ng/L (<3.5-35.0)
[2024-04-08] MEDS: 0.9 % Sodium Chloride 1,000 ML 999 ML IV (17:56)
[2024-04-08 18:03] VITALS: BP 123/76; PULSE 74; RESP 14; TEMP 37; O2SAT 96
[2024-04-08 19:16] LABS: Influenza A PCR NEGATIVE (Negative); Influenza B PCR NEGATIVE (Negative); Resp Syncy Virus RNA Qual PCR NEGATIVE (Negative); SARS COV2 PCR INHOUSE NEGATIVE (Negative)
[2024-04-08 19:51] LABS: Appearance Urine Clear; Color Urine Yellow; Glucose Urine UA >=1000 mg/dL (Negative); Leukocyte Esterase Urine Negative (Negative); Nitrite Urine Negative (Negative); PH 6.5 (5.0-9.0); Specific Gravity - Urine >= 1.030 (1.005-1.025); UMIC TRIGGER UACC YES; Urine Blood Negative (Negative); Urine Ketones Negative (Negative); Urine Protein Negative (Neg-Trace)
[2024-04-08 19:56] LABS: Bacteria Urine None Seen (None Seen); Hyaline Casts Urine 0-2 /LPF (0-2); RBC Urine 0-2 /HPF (0-2); Squamous Epithelial Cell Urine 0-2 /HPF (0-2); WBC Urine 0-5 /HPF (0-5)
[2024-04-08 20:55] LABS: Glucose, Whole Blood 152 mg/dL (60-115)
[2024-04-08 21:11] VITALS: BP 123/76; PULSE 74; RESP 14; TEMP 37; O2SAT 96
== END 2024-04-08 21:11 | disposition home or self-care (01) ==
PROVIDERS: Physician Assistant Medical; Emergency Provider Emergency Medicine; PCP Internal Medicine
DX: E11.65 Type 2 diabetes mellitus with hyperglycemia (principal); R07.89 Other chest pain; R51.9 Headache, unspecified; Z79.899 Other long term (current) drug therapy; Z03.818 Encounter for observation for suspected exposure to other biological agents ruled out
CPT/HCPCS: 0241U; 36415; 71046; 80053; 81001; 82010; 82803; 82947; 83690; 83735; 83930; 84484; 85025; 93005; 99283; 99285

== ENCOUNTER → 2024-04-08 16:41 | Outpatient (BNV) | payer MEDICAID, SELFPAY | PROVIDERS: Emergency Provider Emergency Medicine; PCP Internal Medicine; Visit Provider Internal Medicine | DX: R07.9 Chest pain, unspecified (principal) | CPT/HCPCS: 93010 ==

== ENCOUNTER 2024-05-02 08:09 | Outpatient (REF) | payer MEDICAID, SELFPAY ==
[2024-05-02 08:56] LABS: Estimated Average Glucose 212 mg/dL; Hemoglobin A1C 244.0911 umol/L; Total Hemoglobin (HGBA1C) 3238.1297 umol/L
[2024-05-02 09:19] LABS: Alanine Aminotransferase 34 U/L (0-40); Alkaline Phosphatase 68 U/L (39-117); Anion Gap 13 (12-20); Aspartate Amino Transferase 23 U/L (5-37); Bilirubin Total 0.6 mg/dL (0.0-1.0); Blood Urea Nitrogen 19 mg/dL (9-16); Calcium 9.7 mg/dL (8.4-10.2); Carbon Dioxide 28 mmol/L (22-29); Chloride 100 mmol/L (96-108); Estimated Glomerular Filt Rate > 60; Glucose Random 197 mg/dL (60-115); Potassium 3.7 mmol/L (3.3-5.1); Sodium 137 mmol/L (135-145)
== END 2024-05-02 08:10 | disposition home or self-care (01) ==
LOC: HO.LAB 08:09
PROVIDERS: PCP Internal Medicine; Visit Provider Internal Medicine
DX: E11.65 Type 2 diabetes mellitus with hyperglycemia (principal); I10 Essential (primary) hypertension; R63.5 Abnormal weight gain
CPT/HCPCS: 36415; 80053; 83036

== ENCOUNTER 2024-08-19 08:43 | Outpatient (REF) | payer MEDICAID, SELFPAY ==
--- OUTSIDE RECORDS SUMMARY | 2024-08-19 08:59 | XMS_ITS | Encounter Summary ---
Author Organization [employer] Address [address] [place] [address] [address] [place] [address] Care Team Providers Care Field Nurse Case Manager Name Role Phone Unavailable Primary Care Provider Unavailabl e Encounter Details Date Type Department Care Team (Latest Contact Info) Description 05/17/2021 Abstract [facility] CONVERSIONS Dental, Provider, DDS Social History Tobacco Use Types Packs/Day Years Used Date Smoking Tobacco: Never Assessed Sex and Gender Information Value Date Recorded Sex Assigned at Male 04/07/2022 10:30 AM EDT Legal Sex Male 10:30 AM EDT Gender Identity Male 04/07/2022 10:30 AM EDT Sexual Orientation Straight 04/07/2022 10 :30 AM EDT documented as of this encounter Plan of Treatment Upcoming Encounters Date Type Department Care Team (Late st Contact Info) Description 08/30/2024 1:00 PM EDT Office Visit [facility] ADULT DENTAL [address] [place] [address] Loren Olvera [address] [place] [address] documented as of this encounter Visit Diagnoses Not on filedocumented in this encounter
--- OUTSIDE RECORDS SUMMARY | 2024-08-19 08:59 | XMS_ITS | Encounter Summary ---
Author Organization [employer] Address [address] [place] [address] [address] [place] [address] Care Team Providers Care Technical Manager [employer] Name Role Phone Unavailable Primary Care Provider Unavailabl e Encounter Details Date Type Department Care Team (Latest Contact Info) Description 11/10/2018 Abstract [facility] CONVERSIONS Dental, Provider, DDS Social History Tobacco [...] Description 08/30/2024 1:00 PM EDT Office Visit [facility] ADULT DENTAL [address] [place] [address] Loren Olvera [address] [place] [address] documented as of this encounter Visit Diagnoses Not on filedocumented in this encounter
--- OUTSIDE RECORDS SUMMARY | 2024-08-19 08:59 | XMS_ITS | Clinical Summary ---
Author Organization [employer] Address [address] [facility] [address] [place] [address] Care Team Providers Care Millinery Blocker Name Role Phone Unavailable Primary Care Provider Unavailabl e Allergies No known active allergies Medications metFORMIN (Glucophage) 1000 MG tablet Take 1,000 mg by mouth 2 times daily. 11/03/2023 Active rosuvastatin (Crestor) 40 MG tablet Take 40 mg by mouth Once per day. 10/12/2023 Active Januvia 100 MG tablet Take 100 mg by mouth Once per day. 08/23/2023 Active zolpidem (Ambien) 10 MG tablet Take 10 mg by mouth if needed at bedtime for sleep. 11/13/2023 Active amitriptyline (Elavil) 25 MG tablet Take 25 mg by mouth at bedtime. 08/31/2023 Active Aspirin Low Dose 81 MG chewable tablet Chew 81 mg Once per day. 11/03/2023 Active Active Problems Problem Noted Date Diagnosed Date Fractured dental bahai with loss of materi al 12/23/2023 Bone loss 12/04/2023 Dental plaque 12/04/2023 Social History Tobacco Use Types Packs/Day Years Used Date Smoking Tobacco: Never Smokeless Tobacco: Never Tobacco Cessation:Counseling Given: Not Answered Alcohol Use Standard Drinks/Week Comments Defer 0 (1 standard drink = 0.6 oz pur e alcohol) Sex and Gender Information Value Date Recorded Sex Assigned at Male 04/07/2022 10:30 AM EDT Legal Sex Male 10:30 AM EDT Gender Identity Male 04/07/2022 10:30 AM EDT Sexual Orientation Straight 04/07/2022 10 :30 AM EDT Last Filed Vital Signs Vital Sign Reading Time Taken Comments Blood Pressure 136/74 01/05/2024 1:01 PM EDT Pulse 80 12/23/2023 9:13 AM EDT Temperature - - Respiratory Rate - - Oxygen Saturation - - Inhaled Oxygen Concentration - - Weight - - Height - - Body Mass Index - - Plan of Treatment Upcoming Encounters Date Type Department Care Team (Late st Contact Info) Description 08/30/2024 1:00 PM EDT Office Visit [facility] [address] [place] [address] Ferracci, Loren [address] [place] [address] Health Maintenance Due Date Last Done Comments CT Colonography 1969 Colonoscopy 1969 Colorectal Cancer Screening 1969 Depression Screening 1969 FIT DNA/Cologuard 1969 FIT 1970 FOBT 1970 HIV Screening 1970 Lipid Panel 1969 SDOH Screening 1970 Sigmoidoscopy 1969 Alcohol/Substance Use Screening 1981 Hepatitis C Screening 1987 Hepatitis B Vaccines (1 of 3 - 19+ 3-dose series) 1988 Zoster Vaccines (2 of 2) 12/29/2023 11/03/2023 COVID-19 Vaccine ( season) 2024 10/22/2021, 06/14/2021, 11/28/2020, Additional history exists Dental Oral Exam 06/05/2024 12/04/2023, 03/2021, 11/16/2018, Additional history exists Dental Prophylaxis 07/08/2024 01/05/2024, 1 07/18/2020, 11/10/2018, Additional history exists Dental X-Ray: Bitewings 12/04/2024 12/04/19 24, 05/17/2021, 11/10/2018, Additional history exists Tobacco Screening 01/04/2025 01/05/2024 Dental X-Ray: Full Mouth 12/04/2026 024, 05/17/2021, 03/26/2016 DTaP/Tdap/Td Vaccines (4 - Td or Tdap) 11/02/2033 11/03/2023, 12/12/2017, 03/31/2016 RSV Patients and Patients Aged 60 years or older (1 - 1-dose 75+ series) 2044 Pneumococcal Vaccine: 50+ Years Completed 11/03/2023, 10/22/2021 Influenza Vaccine Completed 03/10/2024, , 07/15/2020, Additional history exists HIB Vaccines Aged Out No longer eligi ble based on patient's age to complete this topic HPV Vaccines Aged Out No longer eligi ble based on patient's age to complete this topic Hepatitis A Vaccines Aged Out No long er eligible based on patient's age to complete this topic IPV Vaccines Aged Out No longer eligi ble based on patient's age to complete this topic Meningococcal Vaccine Aged Out No parul manoj eligible based on patient's age to complete this topic RSV under 20 months Aged Out No longe r eligible based on patient's age to complete this topic Rotavirus Vaccines Aged Out No longer eligible based on patient's age to complete this topic Procedures Procedure Name Priority Date/Time Associated Diagnosis Comments PROPHYLAXIS - ADULT Routine 01/05/2024 1 :00 PM EDT Dental plaque Dental calculus INTRAORAL - COMPLETE SERIES OF RADIOGRAPHIC IMAGES Routine 12/04/2023 11:00 AM EDT PERIODIC ORAL EVALUATION - ESTABLISHED PATIENT Routine 12/04/2023 11:00 AM EDT from Last 3 Months or Most Recently Relevant to Health Maintenance Insurance [facility] MEDICAID STAND ADULT
[2024-08-19 10:07] LABS: Estimated Average Glucose 140 mg/dL; Hemoglobin A1c % 6.5 % (<6.0); Total Hemoglobin (HGBA1C) 3493.2278 umol/L
[2024-08-19 10:35] LABS: Alanine Aminotransferase 35 U/L (0-40); Albumin Level 4.1 g/dL (3.5-5.0); Alkaline Phosphatase 58 U/L (39-117); Anion Gap 10 (12-20); Aspartate Amino Transferase 34 U/L (5-37); Bilirubin Total 0.5 mg/dL (0.0-1.0); Blood Urea Nitrogen 19 mg/dL (9-16); Calcium 9.2 mg/dL (8.4-10.2); Carbon Dioxide 26 mmol/L (22-29); Chloride 108 mmol/L (96-108); Estimated Glomerular Filt Rate > 60; Glucose Random 118 mg/dL (60-115); Potassium 4.2 mmol/L (3.3-5.1); Sodium 140 mmol/L (135-145); Total Protein 7.5 g/dL (6.5-8.0)
== END 2024-08-19 08:44 | disposition home or self-care (01) ==
LOC: HO.LAB 08:43
PROVIDERS: PCP Internal Medicine; Visit Provider Internal Medicine
DX: E11.65 Type 2 diabetes mellitus with hyperglycemia (principal); I10 Essential (primary) hypertension
CPT/HCPCS: 36415; 80053; 83036

== ENCOUNTER 2024-08-22 21:32 | Emergency (ER) | payer MEDICAID, SELFPAY ==
--- NOTE | ~2024-08-22 | XR_ITS ---
CLINICAL HISTORY: back pain 3 views lumbar spine Comparison: None Findings: Normal heights of 5 lumbar vertebrae. Mild retrolisthesis at L1-L2. Worsening of the facet arthropathy, particularly in the lower lumbar spine. L4 and L5 pars are partly obscured. Moderate to severe stool burden in the [id number]. Sacrum and SI joints are partly obscured. IMPRESSION: 1. Worsening facet arthropathy, compared to 2022. 2. No new or acute vertebral compression fracture. This document has been electronically signed by: Jeremias Tracy MD on 08/22/2024 23:02:11
[2024-08-22 21:35] VITALS: BP 143/74; PULSE 88; RESP 16; TEMP 36.2; O2SAT 97; BMI 28.2
[2024-08-23 01:20] LABS: Basophils Percent Auto 0.2 % (0-2); Eosinophils Percent Auto 0.1 % (0-4); Hematocrit 41.1 % (42.0-52.0); Hemoglobin 14.1 g/dl (14.0-18.0); Imm Gran Abs Auto 0.02 X10*3/uL (0.00-0.03); Imm Gran Pct Auto 0.2 % (0.0-0.4); Lymphocytes Absolute Auto 0.8 X10*3/uL (1.2-4.9); Lymphocytes Percent Auto 8.7 % (20-40); MANUAL DIFF FLAG NO; Mean Corpuscular HGB Conc 34.3 g/dl (31.0-36.0); Mean Corpuscular Volume 87.4 fL (80.0-98.0); Mean Platelet Volume 9.3 fL (9.4-12.4); Monocytes Absolute Auto 0.2 X10*3/uL (0.1-1.2); Monocytes Percent Auto 1.8 % (2-11); Platelet Count 219 X10*3/uL (160-400); Red Cell Distribution Width 13.1 % (11.0-16.0)
[2024-08-23 01:21] LABS: Appearance Urine Clear; Color Urine Yellow; Glucose Urine UA >=1000 mg/dL (Negative); Leukocyte Esterase Urine Negative (Negative); Nitrite Urine Negative (Negative); Specific Gravity - Urine >= 1.030 (1.005-1.025); UMIC TRIGGER UACC YES; Urine Blood Negative (Negative); Urine Ketones Negative (Negative); Urine Protein Negative (Neg-Trace)
[2024-08-23 01:26] LABS: Bacteria Urine None Seen (None Seen); Hyaline Casts Urine 0-2 /LPF (0-2); RBC Urine 0-2 /HPF (0-2); Squamous Epithelial Cell Urine 0-2 /HPF (0-2); WBC Urine 0-5 /HPF (0-5)
[2024-08-23 01:36] LABS: Alanine Aminotransferase 46 U/L (0-40); Albumin Level 4.6 g/dL (3.5-5.0); Anion Gap 11 (12-20); Aspartate Amino Transferase 35 U/L (5-37); Bilirubin Total 0.5 mg/dL (0.0-1.0); Blood Urea Nitrogen 25 mg/dL (9-16); Calcium 10.3 mg/dL (8.4-10.2); Carbon Dioxide 27 mmol/L (22-29); Chloride 106 mmol/L (96-108); Creatinine Clr Calc Pharmacy 100.4; Estimated Glomerular Filt Rate > 60; Glucose Random 204 mg/dL (60-115); Potassium 4.4 mmol/L (3.3-5.1); Sodium 140 mmol/L (135-145); Total Protein 8.6 g/dL (6.5-8.0)
--- NOTE | 2024-08-23 01:46 | ED.BACK ---
HPI - Back Pain/Injury General Chief Complaint: Back Pain/Injury Stated Complaint: back pain Time Seen by Provider: 08/23/24 01:39 Source: patient Mode of arrival: ambulatory Limitations: no limitations History of Present Illness ED Provider: Dr. Jacquie Monroe HPI Narrative: Patient comes to the emergency room complaining of right-sided back pain, middle and lower back pain. Patient denies flank pain. Patient denies hematuria or dysuria. Denies any injuries. Patient states that any time that he moves a certain way, it hurts quite a bit. Denies radiation, denies any lumbar pain. Patient denies any urinary/fecal incontinence/retention Related Data Home Medications ?Medication ?Instructions ?Recorded ?Confirmed duloxetine 30 mg capsule,delayed 30 mg PO DAILY 06/15/20 07/08/21 release (Cymbalta) metformin 1,000 mg tablet 1,000 mg PO BID 06/15/20 07/08/21 blood sugar diagnostic (FreeStyle #10 ea 02/06/21 07/08/21 Test strips) diclofenac sodium 75 mg 75 mg PO BID 02/06/21 07/08/21 tablet,delayed release empagliflozin 25 mg tablet 25 mg PO QAM 02/06/21 07/08/21 (Jardiance) lancets 28 gauge (FreeStyle #100 ea 02/06/21 07/08/21 Lancets) zolpidem 10 mg tablet 10 mg PO BEDTIME PRN Insomnia 02/06/21 07/08/21 duloxetine 60 mg capsule,delayed 60 mg PO DAILY 04/11/21 07/08/21 release ezetimibe 10 mg tablet 10 mg PO DAILY 04/11/21 07/08/21 glimepiride 2 mg tablet 2 mg PO DAILY 04/11/21 07/08/21 losartan 50 mg tablet 50 mg PO DAILY 04/11/21 07/08/21 rosuvastatin 40 mg tablet 40 mg PO BEDTIME 04/11/21 07/08/21 Previous Rx's ?Medication ?Instructions ?Recorded cyclobenzaprine 10 mg tablet 10 mg PO TID PRN pain #14 tabs 02/27/22 amoxicillin 875 mg-potassium 1 tab PO BID 7 days #14 tabs 12/14/22 clavulanate 125 mg tablet cyclobenzaprine 10 mg tablet 10 mg PO Q8H #20 tabs 08/04/23 morphine 15 mg immediate release 15 mg PO Q8H PRN pain #15 tabs 08/04/23 tablet cyclobenzaprine 10 mg tablet 10 mg PO TID PRN muscle spasm #10 08/23/24 tabs ketorolac 10 mg tablet 10 mg PO BID PRN pain #8 tabs 08/23/24 Allergies Allergy/AdvReac Type Severity Reaction Status Date / Time No Known Allergies Allergy Verified 08/22/24 21:38 Review of Systems Review of Systems: Constitutional : No Weight loss, No Fever, No Chills, No Night Sweats, No Fatigue, No Malaise ENT/Mouth : No Hearing loss, No Ear Pain, No Nasal Congestion, No Sinus Pain, No Hoarseness, No sore throat, No Rhinorrhea, No Swallowing Difficulty Eyes: No Eye Pain, No Swelling, No Redness, No Foreign Body, No Discharge, No Vision Changes Cardiovascular : No Chest Pain, No SOB, No Dyspnea on Exertion, No Orthopnea, No Edema, No Palpitations Respiratory : No Cough, No Sputum, No Wheezing, No Smoke Exposure, No Dyspnea Gastrointestinal : No Nausea, No Vomiting, No Diarrhea, No Constipation, No abdominal Pain, No Hematochezia, No Melena Genitourinary : no irregular bleeding, No Dysuria, No Urinary Frequency, No Hematuria, No Urinary Incontinence, No Urgency, No Flank Pain, No Urinary Flow Changes, No Hesitancy Musculoskeletal : Complaining of right-sided back pain, middle and lower, worse with movement. Denies radiation of pain. No Myalgias, No Joint Swelling Skin : No Skin Lesions, No rash Neuro : No Weakness, No Numbness, No Paresthesias, No Loss of Consciousness, No Dizziness, No Headache Psych : No Anxiety/Panic, No Depression, No SI/HI/AH/VH, No Social Issues, Heme/Lymph: No Bruising, No Bleeding,No Lymphadenopathy Endocrine : No Polyuria, No Polydipsia, No Temperature Intolerance [facility] Past Medical History Medical History History of steroid therapy COVID-19 vaccine series completed Elevated cholesterol HTN (hypertension) Depression Arthritis Sacroiliac joint dysfunction of right side Sacroiliitis Low back pain Diabetes mellitus Surgical History Surgical history unknown Social History Social History Alcohol intake: current Alcohol intake frequency: holidays/special occasions only Alcohol type: beer Patient Tobacco Use Status: Never used Tobacco Advance Directives: No Advance Directives Information Provided: Yes Do you have a plan to hurt others: No Plan Physical Exam Vital Signs: Vital Signs: Last Vital Signs Temp 97.1 F 08/22/24 21:35 Pulse 88 08/22/24 21:35 Resp 16 08/22/24 21:35 BP 143/74 H 08/22/24 21:35 Pulse Ox 97 08/22/24 21:35 O2 Del Method Room Air 08/22/24 21:35 BMI result Body Mass Index 28.2 Const: Other: Appearance: Alert. Oriented X3. No acute distress. Eyes: Pupils equal, round and reactive to light. ENT: Pharynx normal. Neck: Normal inspection. Neck supple. No lymph nodes noted. No crepitus CVS: Normal heart rate and rhythm. Pulses normal. Normal S1 and S2 Respiratory: No respiratory distress. Breath sounds normal. No Wheezing. No rales Abdomen: Soft and nontender. No rigidity. No distention. Back: No thoracic or lumbar spine tenderness. Pain to palpation over the paraspinal muscles on the right side. No flank pain no CVA tenderness Skin: Skin warm and dry. Normal skin color. Normal skin turgor. Extremities: No lower extremity edema. No Lacerations. No Rash Neuro: Oriented X 3. No motor deficit. No sensory deficit. Moving all extremities. No slurred speech. CN 2 through 12 grossly intact Psych: calm, cooperative, normal affect Medical Decision Making Medical Decision Making [facility] Narrative: My interpretation of labs: Normal hematology and chemistry, normal LFTs, normal urinalysis, no blood in the urine. X-ray of the lumbar spine negative Patient having pain to palpation over the paraspinal muscles, likely musculoskeletal pain. Patient was given a dose of ketorolac and cyclobenzaprine Differential Diagnosis Differential Diagnoses: The differential diagnosis associated with the presentation includes (UTI, pyelonephritis, kidney stones, musculoskeletal pain) Lab Data [facility] Lab Attestation statement: I reviewed the patient's lab results. 08/23/24 01:13 08/23/24 01:13 Labs: Lab Results 08/23/24 Range/Units 01:13 WBC 9.0 (4.8-10.8) X10*3/uL RBC 4.70 (4.60-5.80) X10*6/uL Hgb 14.1 (14.0-18.0) g/dl Hct 41.1 L (42.0-52.0) % MCV 87.4 (80.0-98.0) fL MCH 30.0 (27.0-33.0) pg MCHC 34.3 (31.0-36.0) g/dl RDW 13.1 (11.0-16.0) % Plt Count 219 (160-400) X10*3/uL MPV 9.3 L (9.4-12.4) fL Immature Gran % (Auto) 0.2 (0.0-0.4) % Neut % (Auto) 89.0 H (45-73) % Lymph % (Auto) 8.7 L (20-40) % Phillips % (Auto) 1.8 L (2-11) % Eos % (Auto) 0.1 (0-4) % Baso % (Auto) 0.2 (0-2) % Lymph # (Auto) 0.8 L (1.2-4.9) X10*3/uL Phillips # (Auto) 0.2 (0.1-1.2) X10*3/uL Eos # (Auto) 0.0 (0.0-0.4) X10*3/uL Baso # (Auto) 0.0 (0.0-0.2) X10*3/uL Abs Immat Gran (auto) 0.02 (0.00-0.03) X10*3/uL Absolute Neuts (auto) 8.0 (2.0-8.3) x10*3/uL Absolute Nucleated RBC 0.000 (0.0-0.012) X10*3/uL Nucleated RBC % (auto) 0.0 (0.0-0.2) /100WBC Sodium 140 (135-145) mmol/L Potassium 4.4 (3.3-5.1) mmol/L Chloride 106 (96-108) mmol/L Carbon Dioxide 27 (22-29) mmol/L Anion Gap 11 L (12-20) BUN 25 H (9-16) mg/dL Creatinine 1.02 (0.5-1.4) mg/dL Estim Creat Clear Calc 100.4 Estimated GFR > 60 Random Glucose 204 H (60-115) mg/dL Calcium 10.3 H D (8.4-10.2) mg/dL Total Bilirubin 0.5 (0.0-1.0) mg/dL AST 35 (5-37) U/L ALT 46 H (0-40) U/L Total Protein 8.6 H (6.5-8.0) g/dL Albumin 4.6 (3.5-5.0) g/dL Urine Color Yellow Urine Appearance Clear Urine pH 7.0 (5.0-9.0) Ur Specific Burnett >= 1.030 H (1.005-1.025) Urine Protein Negative (Neg-Trace) mg/dL Urine Glucose (UA) >=1000 H (Negative) mg/dL Urine Ketones Negative (Negative) mg/dL Urine Blood Negative (Negative) Urine Nitrite Negative (Negative) Ur Leukocyte Esterase Negative (Negative) Urine RBC 0-2 (0-2) /HPF Urine WBC 0-5 (0-5) /HPF Ur Squamous Epith Cells 0-2 (0-2) /HPF Urine Bacteria None Seen (None Seen) Hyaline Casts 0-2 (0-2) /LPF Independent Interpretation I performed an independent interpretation of an: Plain X-Ray Interpretation: Normal heights of 5 lumbar vertebrae. Mild retrolisthesis at L1-L2. Worsening of the facet arthropathy, particularly in the lower lumbar spine. L4 and L5 pars are partly obscured. Moderate to severe stool burden in the qijar-tj-yjao. Sacrum and SI joints are partly obscured. IMPRESSION: 1. Worsening facet arthropathy, compared to 2022. 2. No new or acute vertebral compression fracture Discharge Plan Discharge Clinical Impression: Musculoskeletal back pain Patient Disposition: Home, Self-Care Instructions: Back Pain (ED) Additional Instructions: Please follow-up with your primary care physician tomorrow. If you have any worsening or new symptoms, please return to the emergency room or call 911 Prescriptions: New cyclobenzaprine 10 mg tablet 10 mg PO TID PRN (Reason: muscle spasm) Qty: 10 0RF ketorolac 10 mg tablet 10 mg PO BID PRN (Reason: pain) Qty: 8 0RF Rx Instructions: Do not use diclofenac, ibuprofen or any NSAIDs with this medication, okay to use Tylenol if needed No Action losartan 50 mg tablet 50 mg PO DAILY glimepiride 2 mg tablet 2 mg PO DAILY ezetimibe 10 mg tablet 10 mg PO DAILY rosuvastatin 40 mg tablet 40 mg PO BEDTIME duloxetine 60 mg Capsule,Delayed Release(Dr/Ec) 60 mg PO DAILY cyclobenzaprine 10 mg tablet 10 mg PO TID PRN (Reason: pain) Qty: 14 0RF amoxicillin-pot clavulanate 875-125 mg tablet 1 tab PO BID 7 Days Qty: 14 0RF cyclobenzaprine 10 mg tablet 10 mg PO Q8H Qty: 20 0RF morphine 15 mg tablet 15 mg PO Q8H PRN (Reason: pain) Qty: 15 0RF Rx Instructions: Partial Fill upon patient request. metformin 1,000 mg tablet 1,000 mg PO BID duloxetine [Cymbalta] 30 mg capsule,delayed release(DR/EC) 30 mg PO DAILY zolpidem 10 mg tablet 10 mg PO BEDTIME PRN (Reason: Insomnia) Jardiance 25 mg tablet 25 mg PO QAM (DME) lancets [FreeStyle Lancets] 28 gauge misc See Rx Instructions topical BID Qty: 100 Rx Instructions: As directed diclofenac sodium 75 mg tablet,delayed release (DR/EC) 75 mg PO BID (DME) FreeStyle Test Strip See Rx Instructions .ROUTE BID Qty: 10 Rx Instructions: As directed Print Language: Cambodian
[2024-08-23 02:03] LABS: Alkaline Phosphatase 68 U/L (39-117)
[2024-08-23] MEDS: Cyclobenzaprine HCl 10 MG TABLET PO (02:05)
[2024-08-23] MEDS: Ketorolac Tromethamine 30 MG/ML VIAL IVPUSH (02:05)
[2024-08-23 02:07] VITALS: BP 130/72; PULSE 74; RESP 16; TEMP 36.8; O2SAT 95
== END 2024-08-23 02:21 | disposition home or self-care (01) ==
PROVIDERS: Emergency Provider Emergency Medicine; PCP Internal Medicine
DX: M79.18 Myalgia, other site (principal); M54.50 Low back pain, unspecified; I10 Essential (primary) hypertension; E11.9 Type 2 diabetes mellitus without complications; Z79.899 Other long term (current) drug therapy
CPT/HCPCS: 36415; 72100; 80053; 81001; 85025; 96374; 99284; J1885

== ENCOUNTER → 2024-08-22 22:05 | Outpatient (BNV) | payer MEDICAID, SELFPAY | PROVIDERS: Visit Provider Radiology Neuroradiology | DX: M54.50 Low back pain, unspecified (principal) | CPT/HCPCS: 72100 ==

== ENCOUNTER 2024-11-22 06:35 | Outpatient (REF) | payer MEDICAID, SELFPAY ==
[2024-11-22 06:45] LABS: MANUAL DIFF FLAG NO
[2024-11-22 07:40] LABS: Basophils Percent Auto 0.3 % (0-2); Eosinophils Absolute Auto 0.1 X10*3/uL (0.0-0.4); Eosinophils Percent Auto 1.3 % (0-4); Hematocrit 37.8 % (42.0-52.0); Hemoglobin 13.1 g/dl (14.0-18.0); Imm Gran Abs Auto 0.02 X10*3/uL (0.00-0.03); Imm Gran Pct Auto 0.3 % (0.0-0.4); Lymphocytes Absolute Auto 2.3 X10*3/uL (1.2-4.9); Lymphocytes Percent Auto 32.6 % (20-40); Mean Corpuscular HGB Conc 34.7 g/dl (31.0-36.0); Mean Corpuscular Hemoglobin 30.5 pg (27.0-33.0); Mean Corpuscular Volume 88.1 fL (80.0-98.0); Mean Platelet Volume 9.9 fL (9.4-12.4); Monocytes Absolute Auto 0.5 X10*3/uL (0.1-1.2); Monocytes Percent Auto 6.8 % (2-11); Neutrophils Absolute Auto 4.1 x10*3/uL (2.0-8.3); Neutrophils Percent Auto 58.7 % (45-73); Platelet Count 179 X10*3/uL (160-400); Red Blood Count 4.29 X10*6/uL (4.60-5.80); Red Cell Distribution Width 12.8 % (11.0-16.0)
[2024-11-22 07:57] LABS: Alanine Aminotransferase 43 U/L (0-40); Albumin Level 4.3 g/dL (3.5-5.0); Alkaline Phosphatase 74 U/L (39-117); Anion Gap 12 (12-20); Aspartate Amino Transferase 31 U/L (5-37); Bilirubin Total 0.4 mg/dL (0.0-1.0); Blood Urea Nitrogen 27 mg/dL (9-16); Calcium 9.4 mg/dL (8.4-10.2); Carbon Dioxide 28 mmol/L (22-29); Chloride 107 mmol/L (96-108); Cholesterol 99 mg/dL (<200); Estimated Glomerular Filt Rate > 60; Glucose Random 223 mg/dL (60-115); HDL Cholesterol 50 mg/dL (>40); LDL Cholesterol Calculated 28 mg/dL (<100); Potassium 3.9 mmol/L (3.3-5.1); Sodium 143 mmol/L (135-145); Total Protein 7.2 g/dL (6.5-8.0); Triglycerides 108 mg/dL (<150)
[2024-11-22 08:41] LABS: Folate 12.6 ng/mL (> or = 4.0); Prostate Specific Antigen Scr 0.39 ng/mL (<0.05-4.0); Vitamin B12 558 pg/mL (200-900)
== END 2024-11-22 06:36 | disposition home or self-care (01) ==
LOC: HO.LAB 06:35
PROVIDERS: PCP Internal Medicine; Visit Provider Internal Medicine
DX: E11.9 Type 2 diabetes mellitus without complications (principal); E78.00 Pure hypercholesterolemia, unspecified; G62.9 Polyneuropathy, unspecified; I10 Essential (primary) hypertension; N40.0 Benign prostatic hyperplasia without lower urinary tract symptoms
CPT/HCPCS: 36415; 80053; 80061; 82607; 82746; 84153; 85025

== ENCOUNTER 2025-05-22 09:35 | Outpatient (REF) | payer MEDICAID, SELFPAY ==
[2025-05-22 10:29] LABS: Total Hemoglobin (HGBA1C) 2448.0489 umol/L
[2025-05-22 10:49] LABS: Alanine Aminotransferase 22 U/L (0-40); Albumin Level 4.4 g/dL (3.5-5.0); Alkaline Phosphatase 77 U/L (39-117); Anion Gap 11 (12-20); Aspartate Amino Transferase 21 U/L (5-37); Blood Urea Nitrogen 18 mg/dL (9-16); Calcium 9.7 mg/dL (8.4-10.2); Carbon Dioxide 28 mmol/L (22-29); Chloride 104 mmol/L (96-108); Estimated Glomerular Filt Rate > 60; Potassium 4.4 mmol/L (3.3-5.1); Sodium 139 mmol/L (135-145); Total Protein 7.4 g/dL (6.5-8.0)
[2025-05-22 11:49] LABS: Microalbum/Creatinine Ratio Ur 4.6 ug/mg cr (<30)
== END 2025-05-22 09:36 | disposition home or self-care (01) ==
LOC: HO.LAB 09:35
PROVIDERS: PCP Internal Medicine; Visit Provider Internal Medicine
DX: M75.101 Unspecified rotator cuff tear or rupture of right shoulder, not specified as traumatic (principal); E11.649 Type 2 diabetes mellitus with hypoglycemia without coma; M75.41 Impingement syndrome of right shoulder
CPT/HCPCS: 20610; 36415; 80053; 82043; 82570; 83036; 99212; J0665; J1100; J2003

== ENCOUNTER 2025-05-22 09:50 | Outpatient (REF) | payer MEDICAID, SELFPAY ==
--- NOTE | ~2025-05-22 | XR_ITS ---
EXAMINATION: XR SHOULDER, RIGHT CLINICAL INFORMATION: M25.519 - Pain in unspecified shoulder COMPARISON: X-ray 06/17/2019 TECHNIQUE: AP external rotation, Grashey, scapular Y, and axillary views of the right shoulder. FINDINGS: Moderate acromioclavicular arthritis. Mild glenohumeral arthritis. No visible acute fracture, dislocation. There is a round 4 mm sclerotic focus in the acromion. This was not visualized on the prior study. No abnormal soft tissue calcification. XR/XR shoulder RT min 2V IMPRESSION: 1. Moderate acromioclavicular arthritis. Mild glenohumeral arthritis. 2. No radiographic evidence of acute fracture. 3. 4 mm sclerotic focus in the acromion, nonspecific, could represent a bone island. Correlate with patient's clinical history, risks factors. Further evaluation, such as bone scan evaluation could be considered as clinically indicated. Recommend follow-up radiographs to ensure stability. Electronically signed by: Carlos Diggs MD 05/23/2025 10:35 AM DIANNE PINZON
== END 2025-05-22 09:51 | disposition home or self-care (01) ==
LOC: HO.HOSX 09:50
PROVIDERS: Visit Provider Physician Assistant
DX: M25.511 Pain in right shoulder (principal)
CPT/HCPCS: 73030

== ENCOUNTER 2025-05-22 13:28 | Outpatient (AMB) | payer MEDICAID, SELFPAY ==
--- OUTSIDE RECORDS SUMMARY | 2025-03-07 08:20 | XMS_ITS ---
Author Organization [facility] Address [address] [place] [address] Care Team Providers Care Balloon Dipper Name Role Phone Valeria Gibson Primary Care Provider UnavailBenny Fallon [phone] REASON FOR VISIT Patient presents today for a colon screening Encounters Encounter Location Date Provider Diagnosis [facility] [address] [place] [address] 03/07/2025 Benny Charlton Plan Of Treatment Next Appt Details Provider Name:Benny Charlton , 07/04/2025 10:50:00 AM, [address], [address], [place], [address], Progress Notes * TIMI SHAWDOB: [birth year] (55 yo M)Acc No.[id number]:03/07/2025 Progress Notes Patient: TIMI PALACIOS Provider: Jenise Charlton MD :1970 A ge:54 Y S ex:Male Date:03/07/2025 Address:[address] [place] [address] [address], [id number] Pcp:Valeria Gibson Subjective: * Chief Complaints: * P atient presents today for a colon screening Billing Information: * Procedure Codes: * The named appointment provid er may or may not be the originator of this progress note, and it is not deemed complete until electronically signed by the appointment provider. Sign off status: Pending * Provider: Jenise Charlton MD Date: 0 03/07/2025 Generated for Jyoti ballesteros/Carli/Tomeritting on: 1 07/23/2024 07:37 PM EST
--- NOTE | 2025-05-22 13:44 | A.OFFVIS_ITS ---
Vital Signs 05/22/25 13:52 Height 6 ft 1 in Handedness Right Intake Visit Reasons: New Pt - right shoulder pain Intake Note: Gerald is a 55 year old right hand dominant male who presents today as a new patient for a evaluation of his right shoulder pain. Patient reports ongoing pain for a couple months. He mentions that he had injections in the past with relief. Patient notices that his pain is worse with movement and lifting heavy items. Tower Loader Operator Services: Tower Loader Operator Present ([place] ([id number])) Allergies No Known Allergies Allergy (Verified 05/22/25 13:53) HPI HPI New Pt - right shoulder pain: Details: Patient is a 55-year-old right-hand dominant male who presents to the office today for evaluation of right shoulder pain for the past few months. He denies any acute injury or trauma to the right shoulder. He reports that his pain is worse with overhead lifting and lifting heavy items. He had similar complaints in the left shoulder in the past and has received a cortisone injection which gave him relief. [facility] Medical History History of steroid therapy COVID-19 vaccine series completed Elevated cholesterol HTN (hypertension) Depression Arthritis Sacroiliac joint dysfunction of right side Sacroiliitis Low back pain Diabetes mellitus Surgical History Surgical history unknown Social History Alcohol intake: current Alcohol intake frequency: holidays/special occasions only Alcohol type: beer Patient Tobacco Use Status: Never used Tobacco Review of Systems Const All systems reviewed & are unremarkable except as noted in HPI and below Physical Exam Const General: cooperative, healthy appearing and no acute distress Resp Effort & Inspection: normal respiratory effort and able to speak in complete sentences Extrem Other: Right shoulder: Normal to inspection. No ecchymosis, erythema, or edema. [place] isela roughly 45 degrees of forward flexion and abduction. Able to reach T12. External rotation to 45 degrees. Pain with cross-body reach. Forward to 5 strength with empty can drop arm. Negative drop arm. NVI. Psych Appearance: grossly normal Mental Status: mental status grossly normal Attitude: cooperative Office Procedures AMB Joint Injection/Aspiration Joint Injection/Aspiration Primary Site: Right Shoulder Prep: site was prepped using aseptic technique, ethochloride spray was applied and injection warnings given Injected: 40 mg of, with 3 mL of, 1% plain Lidocaine, 0.25% Bupivacaine and in the subcromial space Approach Used: posterolateral Procedure: The patient tolerated the procedure well, but had some pain with the injection and there was some relief with the local anesthesia Coding 62344 - Large joint Procedure code (CPT) selection complete Assessment & Plan Assessment & Plan (1) Painful arc syndrome of right shoulder: Code(s): M75.101 - Unspecified rotator cuff tear or rupture of right shoulder, not specified as traumatic Category: Medical Plan Patient is a 55-year-old right-hand dominant male who presents to the office today for evaluation of right shoulder pain for the past few months. He denies any acute injury or trauma to the right shoulder. He reports that his pain is worse with overhead lifting and lifting heavy items. He had similar complaints in the left shoulder in the past and has received a cortisone injection which gave him relief. The patient was offered a cortisone injection in right shoulder. The patient was explained the risks, benefits, and alternatives to receiving this injection. After receiving consent for the injection, the patient had the procedure done while in the office today. The patient tolerated the procedure well with no complications. The risks, benefits, and alternatives to a corticosteroid injection were disc ussed with the patient, including the potential benefits of decreased inflammation and pain, improved function, and diagnostic value. Risks were reviewed, including post-injection flare, skin or fat atrophy, transient facial flushing, temporary elevation in blood glucose, bruising, and rare but serious complications such as infection, tendon weakening or rupture, and cartilage damage with repeated injections. Procedure-related discomfort and possible vasovagal symptoms were also explained. Alternatives were reviewed, including NSAIDs, physical therapy, activity modification, bracing, ice/heat, weight management, hyaluronic acid injections when appropriate, PRP or other orthobiologics, oral steroids, surgery depending on pathology, and observation. The patient verbalized understanding and elected to proceed. After receiving consent for the injection, the patient had the procedure done while in the office today. The patient tolerated the procedure well with no complications. Follow-up will be PRN, or sooner if needed X-rays of the right shoulder which were obtained while in the office today and were reviewed by Verna marie PA-C, revealed no acute fracture or dislocation. Orders: Orders XR shoulder RT min 2V Today M25.519 - Pain in unspecified shoulder Coding Level of Care Code Est Pt Level 3 (60729) Add On Problem Visit Only Diagnoses Painful arc syndrome of right shoulder M75.101 CPT Codes Coding - 73873 Large joint: 64757 - Large joint ([id number])
--- OUTSIDE RECORDS SUMMARY | 2025-05-22 19:36 | XMS_ITS | Patient Health Record ---
Author Organization [facility] Address [address] [place] [address] Care Team Providers Care Stevedore Dock Name Role Phone Valeria Gibson Primary Care Provider Unavailab Benny Rodriguez Unavailable [phone] Reason For Referral Referring Provider First Name Valeria Referring Provider Last Name Paige Referring Provider Speciality Internal M edicine Referred Organization [facility] Referred Provider Benny Charlton Referred Address [address],[place], [place],[address], Referred Provider Specialty Gastroentero logy General Notes Sarah Grayson 2024 02:46:43 PM > call Dr. Gibson's office to request an [facility] referral for visit with Dr. Charlton on [phone] Referral Priority Routine Plan Of Treatment Next Appt Details Provider Name:Benny Charlton , 07/04/2025 10:50:00 AM, [address], [address], [place], [address], Insurance Providers Payer Name Payer Address Payer Phone Subscriber Number Group Number Insured Name Patient Relationship to Insured Coverage Start Date Coverage End Date MEDICAID OF [facility] [address] [facility] [phone] [id number] TIMI SHAW Self - patient is the insured
--- OUTSIDE RECORDS SUMMARY | 2025-05-22 19:36 | XMS_ITS | Clinical Summary ---
Author Organization [employer] Address [address] [place] [address] Care Team Providers Care Clinical Dietetic Technician Name Role Phone Unavailable Primary Care Provider [...] 81 mg Once per day. 11/03/2023 Active ibuprofen 600 MG tabletIndicatio ns:Pain Take 1 tablet (600 mg) by mouth 3 times daily. 30 tablet 12/26/2024 Active acetaminophen (Tylenol 8 Hour) 650 MG ER tablet Take 1 tablet (650 mg) by mouth every 8 (eight) hours if needed for mild pain. Do not crush, chew, or split. 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 Fractured dental gnosticism with loss of materi al 12/23/2023 Bone [...] Sign Reading Time Taken Comments Blood Pressure 128/76 02/10/2025 7:57 AM EDT Pulse 68 02/10/2025 7:57 AM EDT Temperature - - Respiratory Rate - - Oxygen Saturation - - Inhaled Oxygen Concentration - - Weight - - Height - - Body Mass Index - - Plan of Treatment Health Maintenance Due Date Last Done Comments CT Colonography 1969 Colonoscopy 1969 Colorectal Cancer Screening 1969 Depression Screening 1969 FIT DNA/Cologuard 1969 FIT 1969 FOBT 1969 HIV Screening 1969 Lipid Panel 1969 SDOH Screening 1969 Sigmoidoscopy 1969 Disability Screening 1969 Alcohol/Substance Use Screening 1981 Hepatitis C Screening 1987 Hepatitis B Vaccines (1 of 3 - 19+ 3-dose series) 1988 COVID-19 Vaccine ( season) 2025 10/22/2021, 06/14/2021, 11/28/2020, Additional history exists Dental Oral Exam 03/03/2025 08/30/2024, , 05/17/2021, Additional history exists Dental Prophylaxis 03/03/2025 08/30/2024, 0 01/05/2024, 05/17/2021, Additional history exists Dental X-Ray: Bitewings 12/27/2025 12/27/19, 08/30/2024, 12/04/2023, Additional history exists Tobacco Screening 02/10/2026 02/10/2025 Dental X-Ray: Full Mouth 12/04/202612/03/2 024, 05/17/2021, 03/26/2016 DTaP/Tdap/Td Vaccines (4 - Td or Tdap) 11/02/2033 11/03/2023, 12/12/2017, 03/31/2016 RSV Patients and Patients Aged 60 years or older (1 - 1-dose 75+ series) 2044 Pneumococcal Vaccine: 50+ Years Completed 11/03/2023, 10/22/2021 Influenza Vaccine Completed 01/23/2025, , 06/11/2023, Additional history exists Zoster Vaccines Completed 01/23/2025, 11/03/2023 HIB Vaccines Aged Out No longer eligi [...] patient's age to complete this topic Meningococcal B Vaccine Aged Out No l onger eligible based on patient's age to complete [...] Procedure Name Priority Date/Time Associated Diagnosis Comments BITEWING - SINGLE RADIOGRAPHIC IMAGE Routine 12/26/2024 11:30 AM EDT PROPHYLAXIS - ADULT Routine 08/30/2024 1 :00 PM EDT PERIODIC ORAL EVALUATION - ESTABLISHED PATIENT Routine 08/30/2024 1:00 PM EDT Encounter for dental examination Periodontal disease Dental plaque Dental calculus Halitosis Chronic periodontal disease INTRAORAL - COMPLETE SERIES OF RADIOGRAPHIC IMAGES Routine 12/04/2023 11:00 AM EDT from Last 3 Months or Most Recently Relevant to Health Maintenance Insurance [facility] MEDICAID STAND ADULT
--- OUTSIDE RECORDS SUMMARY | 2025-05-22 19:37 | XMS_ITS | Encounter Summary ---
Author Organization [employer] Address [address] [place] [address] Care Team Providers Care Cardiac Technician Name Role Phone Unavailable Primary Care Provider Unavailabl e Encounter Details Date Type Department Care Team (Latest Contact Info) Description 11/10/2018 Abstract [facility] CONVERSIONS Dental, Provider, DDS Social History Tobacco Use Types Packs/Day Years Used Date Smoking Tobacco: Never Assessed Sex and Gender Information Value Date Recorded Sex Assigned at Male 04/07/2022 10:30 AM EDT Legal Sex Male 10:30 AM EDT Gender Identity Male 04/07/2022 10:30 AM EDT Sexual Orientation Straight 04/07/2022 10 :30 AM EDT documented as of this encounter Plan of Treatment Not on file documented as of this encounter Visit Diagnoses Not on filedocumented in this encounter
--- OUTSIDE RECORDS SUMMARY | 2025-05-22 19:37 | XMS_ITS | Encounter Summary ---
Author Organization [employer] Address [address] [facility] [address] [place] [address] Care Team Providers Care Speech Scientist Name Role Phone Unavailable Primary Care Provider Unavailabl e Encounter Details Date Type Department Care Team (Latest Contact Info) Description 05/17/2021 Abstract [facility] CONVERSIONS Dental, Provider, DDS Social History [...]
== END 2025-05-22 14:44 | disposition home or self-care (01) ==
LOC: HO.HOS 13:29
PROVIDERS: PCP Internal Medicine; Visit Provider Physician Assistant
DX: M75.101 Unspecified rotator cuff tear or rupture of right shoulder, not specified as traumatic (principal)
CPT/HCPCS: 20610; 99213

== ENCOUNTER → 2025-05-22 13:32 | Outpatient (BNV) | payer MEDICAID, SELFPAY | PROVIDERS: Visit Provider Radiology Diagnostic Ultrasound | DX: M19.011 Primary osteoarthritis, right shoulder (principal) | CPT/HCPCS: 73030 ==